=== PATIENT | male | born 1955 | race Caucasian/White ===

== ENCOUNTER 2019-11-12 12:50 | Outpatient (CLI) | payer MEDICARE, SELFPAY ==
--- NOTE | 2019-11-12 12:59 | XR_ITS ---
WS: [id number] XR knee LT 1-2V 28146 REASON FOR EXAM: PAIN IN LEFT KNEE/UNSPECIFIED OSTEOARTHRITIS FINDINGS: Degenerate changes along the medial meniscal space. Spurring off the medial condyle the fem ur and medial tibial plateau. There is spurring off the patella. The patella femoral articulations are normal. Patella tibial spaces are normal. XR/XR knee LT 1-2V 54422 IMPRESSION: Degenerate changes along the medial meniscus.
== END 2019-11-12 12:51 | disposition home or self-care (01) ==
LOC: RADWPI 12:55
PROVIDERS: Family Provider Nurse Practitioner Family; PCP Nurse Practitioner Family; Visit Provider Nurse Practitioner Family
DX: M17.12 Unilateral primary osteoarthritis, left knee
CPT/HCPCS: 73560

== ENCOUNTER 2020-01-05 07:43 | Day surgery (SDC) | payer MEDICARE, SELFPAY ==
[2020-01-01 12:11] VITALS: BMI 37.8
[2020-01-05 08:01] VITALS: BP 144/92; PULSE 61; RESP 18; TEMP 36.1; O2SAT 97
[2020-01-05] MEDS: sodium chloride 0.9% 1,000 ML 30 ML IV (08:21)
--- NOTE | 2020-01-05 08:27 | ANES.PREANE2 ---
Pre-Anesthetic Assessment Pre-Anesthetic Assessment: Height/Weight: Height 1.63 m Weight 99.79 kg Temp Pulse Resp BP Pulse Ox 97 F L 61 18 144/92 97 01/05/20 08:01 01/05/20 08:01 01/05/20 08:01 01/05/20 08:01 01/05/20 08:01 Preop Diagnosis: Fit test positive Proposed Procedure: Operation Date: 01/05/20 09:15 Proposed Procedures p Colonoscopy 04232 K92.1(Not Applicable) - Grayson Vanegas MD Was Beta Nisha taken within 24 hours: Yes Last intake: Intake Last Liquid Date 01/04/20 Last Liquid Time 20:00 Last Solid Date 01/03/20 Last Solid Time 18:00 Social: Social History: No alcohol and No tobacco Airway: Submandibular: WNL Cervical ROM: WNL MP: 1 CV/HEM: CV/HEM: HTN GI: GI: Hiatus hernia (asymptomatic) Anesthetic Plan: ASA status: 2 Anesthesia: MAC Risk of > 500 ml blood loss (7ml/kg in children): No Meds/Allergies Current Medications: Current Medications Generic Name Dose Route Start Last Admin Trade Name Freq PRN Reason Stop Dose Admin Sodium Chloride 1,000 mls @ 30 ml s/hr 01/05/20 08:00 01/05/20 08:21 Sodium Chloride 0.9% IV 01/06/20 07:59 30 mls/hr .Q24H SUSAN Administration PFSH Anesthesia PFSH: Medical History Arthritis BPH (benign prostatic hyperplasia) Hypercalcemia Hypercholesteremia Hypertension Surgical History History of back surgery Social History Smoking and tobacco status: never smoked Alcohol intake: never Data Anesthesia Cardiac Studies: No Data to Display
--- NOTE | 2020-01-05 09:28 | W.PM.OPSUD ---
Surgery/Procedure H&P Update DATE OF PROCEDURE: January 05, 2020 DATE H&P PERFORMED: 12/29/19 H&P UPDATE INFORMATION: I have reviewed H&P completed within last 30 days, I have examined patient prior to procedure and No changes to prior documentation PREOP DIAGNOSIS: Fit test positive PLANNED PROCEDURE: Operation Date: 01/05/20 09:15 Proposed Procedures p Colonoscopy 60666 K92.1(Not Applicable) - Grayson Vanegas MD
[2020-01-05 09:57] VITALS: BP 97/57; PULSE 48; RESP 18; TEMP 37.1; O2SAT 93
[2020-01-05 10:16] VITALS: BP 125/65; PULSE 52; RESP 18; O2SAT 98
== END 2020-01-05 10:21 | disposition home or self-care (01) ==
PROVIDERS: PCP Nurse Practitioner Family; Visit Provider Surgery
PROC: 0DJD8ZZ Inspection of Lower Intestinal Tract, Via Natural or Artificial Opening Endoscopic (ICD-10-PCS; CPT 45378; principal; 2020-01-05 09:15)
DX: K92.1 Melena (principal); K57.30 Diverticulosis of large intestine without perforation or abscess without bleeding; D12.4 Benign neoplasm of descending colon; C20 Malignant neoplasm of rectum; I10 Essential (primary) hypertension; M19.90 Unspecified osteoarthritis, unspecified site; N40.0 Benign prostatic hyperplasia without lower urinary tract symptoms; E78.00 Pure hypercholesterolemia, unspecified
CPT/HCPCS: 12345; 45385; 88305; J0171; J2704; J7030

== ENCOUNTER 2020-01-08 08:44 | Outpatient (CLI) | payer MEDICARE, SELFPAY ==
[2020-01-08 09:35] LABS: Blood Urea Nitrogen 14 mg/dL (8-23)
[2020-01-08] MEDS: iohexol 300 mg/mL 50 mL Btl PO (09:44)
[2020-01-08] MEDS: iohexol 300 mg/mL 100 mL Btl IV (10:23)
--- NOTE | 2020-01-08 10:30 | CT_ITS ---
WS: [id number] CT ABDOMEN PELVIS TECHNIQUE: Contrast-enhanced CT of the abdomen and pelvis with coronal and sagittal reformatted image s. CLINICAL INFORMATION: rectal mass COMPARISON: None. DLP: 1507.[address] scans at [facility] use at least one of these dose optimization techniques: automat ed exposure control; mA and/or kV adjustment per patient size (includes targeted exams where dose is matched to clinical indication); or iterative reconstruction. FINDINGS: Mild diffuse fatty infiltration of the liver. Portal vein and splenic vein are normal. Normal spleen. A few splenic granulomas. Normal GE junction. Lung bases are well aerated. Calcified granuloma right lower lobe. Normal pancreas. Adrenal glands are normal. Normal renal parenchymal enhancement. No hydronephrosis. Normal caliber ab dominal aorta. Mild aortic calcification. Scattered stool in the colon. Normal appendix. No abdominal or pelvic lymphadenopathy. Tiny fat-containing umbilical hernia. Rectal mass identified on colonoscopy is not definitely identified on this examination. Pelvic phleboliths. Normal perirecta l fat. Moderate spondylitic changes lumbar spine. Disc space narrowing worse at L3-L4 and L4-L5. CT/CT abdomen pelvis w con* [id number] IMPRESSION: 1. No abdominal or pelvic lymphadenopathy. No inguinal lymphadenopathy. 2. Normal visualized perirectal fat. 3. No evidence of metastatic disease in the abdomen or pelvis. 4. Incidental fat-containing umbilical hernia.
== END 2020-01-08 08:45 | disposition home or self-care (01) ==
PROVIDERS: PCP Nurse Practitioner Family; Visit Provider Surgery
DX: K62.89 Other specified diseases of anus and rectum (principal); K42.9 Umbilical hernia without obstruction or gangrene
CPT/HCPCS: 36415; 74177; 82565; 84520

== ENCOUNTER 2020-01-21 09:37 | Outpatient (CLI) | payer MEDICARE, SELFPAY ==
[2020-01-21 12:50] LABS: Alanine Aminotransferase 17 U/L (0-41); Albumin Level 4.2 g/dL (3.5-5.2); Alkaline Phosphatase 61 IU/L (40-130); Anion Gap 13.5 (5-19); Aspartate Amino Transferase 16 U/L (0-40); Blood Urea Nitrogen 13 mg/dL (8-23); Calcium 9.1 mg/dL (8.5-10.5); Carbon Dioxide 25 mmol/L (22-29); Chloride 103 mmol/L (98-107); Globulin 2.7 g/dL (1.3-4.6); Glomerular Filtration Rate 84.7 mL/min (90-130); Glucose 127 mg/dL (65-115); Osmolality Calculated 282 mOsm/kg (285-295); Potassium 4.5 mmol/L (3.5-5.1); Sodium 137 mmol/L (136-145); Total Bilirubin 0.8 mg/dL (0.15-1.2); Total Protein 6.9 g/dL (6.6-8.7)
[2020-01-21 13:22] LABS: Basophils % 0.5 %; Eosinophils # 0.2 10^3/uL (0.0-0.8); Eosinophils % 2.9 %; Hematocrit 43.6 % (42.0-52.0); Hemoglobin 13.9 g/dL (11.7-16.6); Lymphocytes # 1.9 10^3/uL (0.8-4.8); Lymphocytes % 25.1 %; Mean Corpuscular HGB Conc 31.9 g/dL (30.0-36.0); Mean Corpuscular Hemoglobin 30.8 pg (28.0-34.0); Mean Corpuscular Volume 96.7 fL (80-94); Mean Platelet Volume 11.3 fL (7.4-10.4); Monocytes # 0.6 10^3/uL (0.2-0.9); Monocytes % 8.2 %; Neutrophils # 4.84 10^3/uL (1.8-7.7); Nucleated Red Blood Cells % 0 %; Platelet Count 199 10^3/cmm (130-400); Red Blood Count 4.51 10^6/uL (4.1-5.3); Red Cell Distribution Width 12.9 % (12.1-15.1); White Blood Count 7.7 10^3/uL (4.0-10.0)
--- NOTE | 2020-01-21 17:21 | ONC CON_ITS ---
Dr. Cline New Patient Note Patient: Ian Coleman Unit #: [id number]: 1955 Dicatated By: Maria Elena Cline M.D.Date of Visit: Jan 21, 2020 Onc MED New Patient/Consult Referring Physician: Dr. KADI VANEGAS M.D. History of Present Illness: Mr. Ian Coleman, is a 64-year-old gentleman with history of fresh blood per rectum over 2 years, initially thought could be due to hemorrhoids but eventually his convinced him to go for colonoscopy evaluation which he never had done before. Patient was seen by Dr. Vanegas for guaiac positive stool, he underwent colonoscopy on January 05, 2020 which showed about 5 cm from anal verge, there was a 3 cm mass noted sessile type, was removed partially with a snare and final pathology report came back well-differentiated adenocarcinoma and MSI/MMR shows normal expression, there was a 5 mm sessile polyp removed from descending colon which showed tubular adenoma Rest of exam was unremarkable. Patient had CT scan of abdomen pelvis done on January 08, 2020 which showed no abdominal or pelvic lymphadenopathy, no inguinal lymphadenopathy and no evidence of metastatic disease in the abdomen or pelvis. Patient denies any history of jaundice, denies any history of hemoptysis or hematemesis, Patient has history of chronic lower back pain, in the past evaluated by orthopedics, because of risk involved with surgery, supportive care was recommended Complaining of generalized weakness and fatigue, no weight loss, no shortness of breath or palpitation, no chest pain. Past Medical History: Mr. Coleman's medical history consists of arthritis, bph, hypercalcemia, hypercholesterolemia, and hypertension. Past Surgical History: Mr. Coleman's surgical/procedural history consists of back surgery and colonoscopy in 2020. Medications: Aspirin 1 Tablet (of 81 mg) Tablet, chewable Oral daily, Atenolol 1 Tablet (of 25 mg) Oral b.i.d., Atorvastatin Calcium 1 Tablet (of 20 mg) Oral daily, Cinnamon 1 Capsule (of 1000 mg) Oral daily, Finasteride 1 Tablet (of 5 mg) Oral daily, Losartan Potassium 1 Tablet (of 100 mg) Oral daily, Tamsulosin HCl 1 Capsule (of 0.4 mg) Oral daily, Turmeric 1 Capsule (of 500 mg) Oral daily Allergies: No Known Allergies. Social History: Mr. Coleman is and he is an unknown. Mr. Coleman has never smoked. He has no history of drinking. Family History: Mr. Coleman's mother at age 79. Mr. Coleman's father at age 51: blood clot. Review Of Symptoms: Constitutional - Appetite is good and weight is stable. No fever, night sweats, or hot flashes. Energy level is fair, ENMT - No sinus congestion/drainage. No mouth sores. No sore throat or difficulty swallowing, Hematologic/Lymphatic - No abnormal bruising or bleeding, Respiratory - Positive for shortness of breath. No cough. No pleuritic pain or hemoptysis, Cardiovascular - No angina pain. No palpitations, Gastrointestinal - No nausea or vomiting. Positive for heartburn and acid reflux. Positive for diarrhea, no constipation. Positive for blood in the stool/black stools, Genitourinary (M) - No dysuria or hematuria. Positive for urinary frequency and nocturia. No urgency or incontinence, Musculoskeletal - Positive for joint pain, Neurologic - No headache. Positive for dizziness. No numbness or tingling. No other focal neurologic symptoms, Psychiatric - No anxiety or depression. Positive for insomnia. Vital Signs: Performed on Jan 21, 2020 11:03: 8, 38.35 (HIGH), 2.05 sq.m, 64.00 in, 99 %, 47 /min (LOW), 24 /min, 161/88 mm(hg) (HIGH), 97.2 F (LOW), and 223.4 lbs (HIGH). Performance Status: 0 - Fully active, able to carry on all predisease activities without restrictions. (ECOG) Physical Examination: ENMT - No mouth sores, no thrush, no jaundice, Respiratory - Lungs are clear, Cardiovascular - Regular rate and rhythm of heart, Gastrointestinal - Soft , bowel sounds present, Extremities - No visible edema. Lab/Imaging: Most recent lab results are not available for this patient. Impression: Well-differentiated adenocarcinoma involving rectum per colonoscopy done on January 05, 2020 which showed 5 cm from anal verge, there was a 3 cm mass which was removed partially with snare Polyp removed from descending colon, pathology confirmed tubular adenoma History of melena hematochezia over couple of years, history of hemorrhoids. History of chronic back pain Plan: Discussed with patient regarding his disease status and treatment options, clinically it appears patient may have early stage rectal cancer, case was discussed with Dr. Guilherme hsu and he was considering referring him to colorectal surgeon in [place], agree with that, patient may benefit from transanal sonogram or MRI scan of pelvis and if superficial lesion, may be a candidate for transanal resection. On the other hand if tumor is locally advanced, will consider combined chemoradiation, or upfront surgery followed by adjuvant therapy, patient is being referred to colorectal surgery in [place] and he will return to clinic 2 weeks after evaluation. In the meantime we will check his baseline CBC CMP, patient may have iron deficiency anemia due to chronic GI blood loss, if confirmed will consider iron supplements. Signed By: Maria Elena Cline M.D. <<Signature on File>>
== END 2020-01-21 09:38 | disposition home or self-care (01) ==
PROVIDERS: PCP Nurse Practitioner Family; Visit Provider Internal Medicine Hematology & Oncology
DX: C20 Malignant neoplasm of rectum (principal); G89.29 Other chronic pain; K92.2 Gastrointestinal hemorrhage, unspecified; Z86.010 Personal history of colon polyps
CPT/HCPCS: 80053; 85025; 99203

== ENCOUNTER 2020-04-13 13:39 | Outpatient (CLI) | payer MEDICARE, SELFPAY ==
[2020-04-13 14:18] LABS: Basophils # 0.1 10^3/uL (0.0-0.1); Basophils % 0.7 %; Eosinophils # 0.3 10^3/uL (0.0-0.8); Eosinophils % 3.4 %; Hematocrit 40.9 % (42.0-52.0); Hemoglobin 13.6 g/dL (11.7-16.6); Lymphocytes # 2.4 10^3/uL (0.8-4.8); Lymphocytes % 31.9 %; Mean Corpuscular HGB Conc 33.3 g/dL (30.0-36.0); Mean Corpuscular Hemoglobin 30.2 pg (28.0-34.0); Mean Corpuscular Volume 90.9 fL (80-94); Mean Platelet Volume 10.6 fL (7.4-10.4); Monocytes # 0.8 10^3/uL (0.2-0.9); Monocytes % 10.1 %; Neutrophils # 4.06 10^3/uL (1.8-7.7); Neutrophils % 53.6 %; Nucleated Red Blood Cells % 0 %; Platelet Count 198 10^3/cmm (130-400); Red Cell Distribution Width 12.7 % (12.1-15.1); White Blood Count 7.6 10^3/uL (4.0-10.0)
[2020-04-13 14:40] LABS: Alanine Aminotransferase 17 U/L (0-41); Albumin Level 3.9 g/dL (3.5-5.2); Alkaline Phosphatase 73 IU/L (40-130); Anion Gap 14.1 (5-19); Aspartate Amino Transferase 13 U/L (0-40); Blood Urea Nitrogen 17 mg/dL (8-23); Calcium 9.2 mg/dL (8.5-10.5); Carbon Dioxide 25 mmol/L (22-29); Chloride 103 mmol/L (98-107); Globulin 2.3 g/dL (1.3-4.6); Glomerular Filtration Rate 96.7 mL/min (90-130); Glucose 212 mg/dL (65-115); Osmolality Calculated 294 mOsm/kg (285-295); Potassium 4.1 mmol/L (3.5-5.1); Sodium 138 mmol/L (136-145); Total Bilirubin 0.3 mg/dL (0.15-1.2); Total Protein 6.2 g/dL (6.6-8.7)
--- NOTE | 2020-04-13 16:50 | ONC FU_ITS ---
Dr. Cline follow up note Patient: Ian Coleman Unit #: [id number]: 1955 Dicatated By: Maria Elena Cline M.D.Date of Visit:Apr 13, 2020 Onc Med Follow-up/Prog Note History of Present Illness: Mr. Ian Coleman, is a 64-year-old gentleman with history of fresh blood per rectum over 2 years, initially thought could be due to hemorrhoids but eventually his convinced him to go for colonoscopy evaluation which he never had done before. Patient was seen by Dr. Vanegas for guaiac positive stool, he underwent colonoscopy on January 05, 2020 which showed about 5 cm from anal verge, there was a 3 cm mass noted sessile type, was removed partially with a snare and final pathology report came back well-differentiated adenocarcinoma and MSI/MMR shows normal expression, there was a 5 mm sessile polyp removed from descending colon which showed tubular adenoma Rest of exam was unremarkable. Patient had CT scan of abdomen pelvis done on January 08, 2020 which showed no abdominal or pelvic lymphadenopathy, no inguinal lymphadenopathy and no evidence of metastatic disease in the abdomen or pelvis. Patient denies any history of jaundice, denies any history of hemoptysis or hematemesis, Patient has history of chronic lower back pain, in the past evaluated by orthopedics, because of risk involved with surgery, supportive care was recommended Complaining of generalized weakness and fatigue, no weight loss, no shortness of breath or palpitation, no chest pain. Dr. Vanegas referred the patient to colorectal surgeon in [place], as per patient on March 16, 2020 he underwent transanal colorectal surgery and he was told he has stage I disease, as per patient his surgeon Dr. Hugo gutierrez told him that he will need chemoradiation. Came for follow-up, denies any specific complaint, no fever chills, no nausea or vomiting, no diarrhea or constipation, no melena or hematochezia, no constipation. Medications: Aspirin 1 Tablet (of 81 mg) Tablet, chewable Oral daily, Atenolol 1 Tablet (of 25 mg) Oral b.i.d., Atorvastatin Calcium 1 Tablet (of 20 mg) Oral daily, Cinnamon 1 Capsule (of 1000 mg) Oral daily, Finasteride 1 Tablet (of 5 mg) Oral daily, Losartan Potassium 1 Tablet (of 100 mg) Oral daily, Tamsulosin HCl 1 Capsule (of 0.4 mg) Oral daily, Turmeric 1 Capsule (of 500 mg) Oral daily Allergies: No Known Allergies. Review of Systems: Review of Systems is not available for this patient. Vital Signs: Performed on Apr 13, 2020 15:53 Height - 64.00 in Weight - 232.8 lbs (HIGH) BSA - 2.09 sq.m BMI - 39.96 (HIGH) Temperature - 98.2 F (LOW) Pulse - 54 /min (LOW) Respiration - 24 /min BP - 140/102 mm(hg) O2 Sat - 94 % (LOW) Pain - 0 Performance Status: 0 - Fully active, able to carry on all predisease activities without restrictions. (ECOG) Physical Examination: ENMT - No mouth sores, no thrush, no jaundice, Respiratory - Lungs are clear to auscultation, Cardiovascular - Regular rate and rhythm of heart, Abdomen - Soft, bowel sounds present, Extremities - No visible edema. Lab/Imaging: Test performed on Jan 21, 2020 11:58 Sodium 137 mmol/L Potassium 4.5 mmol/L Chloride 103 mmol/L CO2 25 mmol/L Anion Gap 13.5 BUN 13 mg/dL Creatinine 0.9 mg/dL Cr Clearance (Est) 117.2900 mL/min eGFR 84.7 mL/min Glucose 127 mg/dL Calcium 9.1 mg/dL Osmolality - Calculated 282 mOsm/kg Protein, Total 6.9 g/dL Albumin 4.2 g/dL Globulin 2.7 g/dL Bilirubin, Total 0.8 mg/dL ALT (SGPT) 17 U/L AST (SGOT) 16 U/L Alkaline Phosphatase 61 IU/L WBC 7.7 10 3/uL RBC 4.51 10 6/uL HGB 13.9 g/dL HCT 43.6 % MCV 96.7 fL MCH 30.8 pg MCHC 31.9 g/dL RDW 12.9 % Platelet Count 199 10 3/cmm MPV 11.3 fL Neutrophils 4.84 10 3/uL Lymphocytes 1.9 10 3/uL Monocytes 0.6 10 3/uL Eosinophils 0.2 10 3/uL Basophils 0.0 10 3/uL Neutrophil % 63.0 % Lymphocyte % 25.1 % Monocyte % 8.2 % Eosinophil % 2.9 % Basophils % 0.5 % NRBC % 0 % Impression: Well-differentiated adenocarcinoma involving rectum per colonoscopy done on January 05, 2020 which showed 5 cm from anal verge, there was a 3 cm mass which was removed partially with snare Subsequently patient underwent transanal resection on March 16, 2020, Polyp removed from descending colon, pathology confirmed tubular adenoma History of melena hematochezia over couple of years, history of hemorrhoids. History of chronic back pain Plan: Discussed with patient regarding his labs white blood count 7.6 hemoglobin 13.6 hematocrit 40.9 platelets 198,000 CMP within normal limit except glucose 212 Clinically, patient is doing well, with no new signs symptoms, recently underwent transanal resection of colorectal mass, as per patient he was told he has stage I disease and his case was discussed in tumor board in [place] and his surgeon recommended combined chemoradiation. At this moment, we do not have his medical record available from [place], we will request record release regarding his transanal resection surgery and final pathology report as well as tumor board recommendations. Patient will return to clinic week after Thanksgiving for further discussion Addendum, case was discussed with Dr. Hugo Gutierrez and he said patient has stage I rectal cancer with lymphovascular involvement that would make him high risk stage I and his case was discussed in tumor board and recommendations were combined chemoradiation followed by evaluation and if no evidence of disease, adjuvant chemotherapy with FOLFOX. And also discussed about NCCN guideline which include transabdominal resection in high risk stage I, with Nx status disease if lymph node status is negative then observation can be considered, we will discussed with patient regarding both options and the patient agreed for surgery then Dr. Gutierrez will evaluate him on the other hand the patient decided about combined chemoradiation then will consider referral to radiation and concurrent chemotherapy with oral Xeloda followed by evaluation if no disease, adjuvant chemotherapy with FOLFOX. Signed By: Maria Elena Cline M.D. <<Signature on File>>
== END 2020-04-13 13:40 | disposition home or self-care (01) ==
LOC: ONCMED 13:42
PROVIDERS: PCP Nurse Practitioner Family; Visit Provider Internal Medicine Hematology & Oncology
DX: C20 Malignant neoplasm of rectum (principal); D12.4 Benign neoplasm of descending colon; G89.29 Other chronic pain; M54.9 Dorsalgia, unspecified; Z90.49 Acquired absence of other specified parts of digestive tract
CPT/HCPCS: 36415; 80053; 85025; 99214

== ENCOUNTER 2020-05-05 09:45 | Outpatient (CLI) | payer MEDICARE, SELFPAY ==
--- NOTE | 2020-05-06 00:44 | ONC FU_ITS ---
Dr. Cline follow up note Patient: Ian Coleman Unit #: [id number]: 1955 Dicatated By: Maria Elena Cline M.D.Date of Visit:May 05, 2020 Onc Med Follow-up/Prog Note History of Present Illness: Mr. Ian Coleman, is a 64-year-old gentleman with history of fresh blood per rectum over 2 years, initially thought could be due to hemorrhoids but eventually his convinced him to go for colonoscopy evaluation which he never had done before. Patient was seen by Dr. Vanegas for guaiac positive stool, he underwent colonoscopy on January 05, 2020 which showed about 5 cm from anal verge, there was a 3 cm mass noted sessile type, was removed partially with a snare and final pathology report came back well-differentiated adenocarcinoma and MSI/MMR shows normal expression, there was a 5 mm sessile polyp removed from descending colon which showed tubular adenoma Rest of exam was unremarkable. Patient had CT scan of abdomen pelvis done on January 08, 2020 which showed no abdominal or pelvic lymphadenopathy, no inguinal lymphadenopathy and no evidence of metastatic disease in the abdomen or pelvis. Patient denies any history of jaundice, denies any history of hemoptysis or hematemesis, Patient has history of chronic lower back pain, in the past evaluated by orthopedics, because of risk involved with surgery, supportive care was recommended Complaining of generalized weakness and fatigue, no weight loss, no shortness of breath or palpitation, no chest pain. Dr. Vanegas referred the patient to colorectal surgeon in [place], as per patient on March 16, 2020 he underwent transanal colorectal surgery and he was told he has stage I disease, as per patient his surgeon Dr. Hugo john told him that he will need chemoradiation. Came for follow-up, denies any specific complaints except off and on blood per rectum and patient is here to discuss about his treatment options. Denies any abdominal pain denies any nausea or vomiting or diarrhea, denies any jaundice. Medications: Aspirin 1 Tablet (of 81 mg) Tablet, chewable Oral daily, Atenolol 1 Tablet (of 25 mg) Oral b.i.d., Atorvastatin Calcium 1 Tablet (of 20 mg) Oral daily, Cinnamon 1 Capsule (of 1000 mg) Oral daily, Finasteride 1 Tablet (of 5 mg) Oral daily, Losartan Potassium 1 Tablet (of 100 mg) Oral daily, Tamsulosin HCl 1 Capsule (of 0.4 mg) Oral daily, Turmeric 1 Capsule (of 500 mg) Oral daily Allergies: No Known Allergies. Review of Systems: Constitutional - Appetite is good and weight is stable. No fever, night sweats, or hot flashes. Energy level is fair, ENMT - No sinus congestion/drainage. No mouth sores. No sore throat or difficulty swallowing, Hematologic/Lymphatic - No abnormal bruising or bleeding, Respiratory - Positive for shortness of breath. No cough. No pleuritic pain or hemoptysis, Cardiovascular - No angina pain. No palpitations, Gastrointestinal - No nausea or vomiting. Positive for heartburn and acid reflux. No for diarrhea, no constipation. Positive for blood in the stool/black stools, Genitourinary (M) - No dysuria or hematuria. Positive for urinary frequency and nocturia. No urgency or incontinence, Musculoskeletal - Positive for joint pain, Neurologic - No headache. No for dizziness. No numbness or tingling. No other focal neurologic symptoms, Psychiatric - No anxiety or depression. No for insomnia. Vital Signs: Performed on May 05, 2020 11:11 Height - 64.00 in Weight - 235.8 lbs (HIGH) BSA - 2.10 sq.m BMI - 40.48 (HIGH) Temperature - 98.0 F (LOW) Pulse - 52 /min (LOW) Respiration - 20 /min BP - 208/101 mm(hg) (HIGH) O2 Sat - 94 % (LOW) Pain - 5 Performance Status: 0 - Fully active, able to carry on all predisease activities without restrictions. (ECOG) Physical Examination: ENMT - No mouth sores, no thrush, no jaundice, Respiratory - Lungs are clear to auscultation, Cardiovascular - Regular rate and rhythm of heart, Abdomen - Soft, bowel sounds present, Extremities - No visible edema. Lab/Imaging: Test performed on Apr 13, 2020 14:01 Sodium 138 mmol/L Potassium 4.1 mmol/L Chloride 103 mmol/L CO2 25 mmol/L Anion Gap 14.1 BUN 17 mg/dL Creatinine 0.8 mg/dL Cr Clearance (Est) 135.66 mL/min eGFR 96.7 mL/min Glucose 212 mg/dL Osmolality - Calculated 294 mOsm/kg Calcium 9.2 mg/dL Protein, Total 6.2 g/dL Albumin 3.9 g/dL Globulin 2.3 g/dL Bilirubin, Total 0.3 mg/dL ALT (SGPT) 17 U/L AST (SGOT) 13 U/L Alkaline Phosphatase 73 IU/L WBC 7.6 10 3/uL RBC 4.50 10 6/uL HGB 13.6 g/dL HCT 40.9 % MCV 90.9 fL MCH 30.2 pg MCHC 33.3 g/dL RDW 12.7 % Platelet Count 198 10 3/cmm MPV 10.6 fL Neutrophils 4.06 10 3/uL Lymphocytes 2.4 10 3/uL Monocytes 0.8 10 3/uL Eosinophils 0.3 10 3/uL Basophils 0.1 10 3/uL Neutrophil % 53.6 % Lymphocyte % 31.9 % Monocyte % 10.1 % Eosinophil % 3.4 % Basophils % 0.7 % NRBC % 0 % Impression: Well-differentiated adenocarcinoma involving rectum per colonoscopy done on January 05, 2020 which showed 5 cm from anal verge, there was a 3 cm mass which was removed partially with snare Subsequently patient underwent transanal resection on March 16, 2020, Polyp removed from descending colon, pathology confirmed tubular adenoma History of melena hematochezia over couple of years, history of hemorrhoids. History of chronic back pain Plan: Discussed with patient regarding his treatment options which include being high risk stage I with lymphovascular involvement and unknown lymph node status as patient underwent transanal resection, neoadjuvant chemotherapy with oral Xeloda concurrent with radiation therapy followed by evaluation if no evidence of disease then adjuvant FOLFOX other option would be transabdominal resection and if it confirm stage I disease with no lymph node involvement then observation or clinical trial. Patient opted for upfront surgery, and now scheduled to surgery in [place] on May 17, 2020. Patient return to clinic 2 weeks after his surgery for further discussion. As far as off and on mild bleeding per rectum is concerned, patient was advised to avoid NSAID or use stool softener and if there is a worsening of rectal bleeding, he need to call us or go to hospital for evaluation otherwise as mentioned above patient is scheduled see surgery on May 17, 2020 in [place] Signed By: Maria Elena Cline M.D. <<Signature on File>>
== END 2020-05-05 09:46 | disposition home or self-care (01) ==
LOC: ONCMED 09:47
PROVIDERS: PCP Nurse Practitioner Family; Visit Provider Internal Medicine Hematology & Oncology
DX: C20 Malignant neoplasm of rectum (principal); G89.29 Other chronic pain; M54.9 Dorsalgia, unspecified; Z86.010 Personal history of colon polyps; Z79.82 Long term (current) use of aspirin
CPT/HCPCS: 99214

== ENCOUNTER 2021-07-28 17:48 | Emergency (ER) | payer MEDICARE, SELFPAY ==
[2021-07-28 17:56] VITALS: BP 133/83; PULSE 79; RESP 18; TEMP 36.9; O2SAT 95; BMI 43.6
--- NOTE | 2021-07-28 18:05 | PC.NURSE ---
DR. WILLIS REVIEWED EKG TAKEN IN TRIAGE AT 1803
--- NOTE | 2021-07-28 18:35 | XRR_ITS ---
PROCEDURE INFORMATION: Exam: XR Chest Exam date and time: 07/28/2021 6:35 PM Age: 66 years old Clinical indication: Angina; Additional info: Chest pain TECHNIQUE: Imaging protocol: XR of the chest. Views: 1 view. COMPARISON: CT abdomen pelvis w con* [id number] 01/08/2020 10:16 AM FINDINGS: Lungs: Unremarkable. No consolidation. Pleural spaces: Unremarkable. No pleural effusion. No pneumothorax. Heart/Mediastinum: Unremarkable. No cardiomegaly. Bones/joints: Unremarkable. XR/XR chest 1V portable [id number] IMPRESSION: No acute findings.
--- NOTE | 2021-07-28 18:35 | ECG_ITS ---
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 Measurements Intervals [place] Rate: 92 P: 36 NE: 175 QRS: -49 QRSD: 96 T: 45 QT: 348 QTc: 432 Interpretive Statements SINUS RHYTHM WITH OCCASIONAL SUPRAVENTRICULAR PREMATURE COMPLEXES LEFT AXIS DEVIATION [QRS AXIS < -30] INTERPRETATION BASED ON A DEFAULT AGE OF 40 YEARS No previous ECG available for comparison Electronically Signed On 07-29-2021 8:30:58 JOB TRAINER by Sharmin Shin M.D. [id number]
--- NOTE | 2021-07-28 20:35 | ECG_ITS ---
[facility] Test Date: 2021-07-28 Pat Name: Ian Coleman Department: Room: Gender: Male Entry Level Management: : 1955 Requested By: Ant Argueta Order Number: [id number] Maggie MD: Sharmin Shin M.D. Measurements Intervals [place] Rate: 76 P: 39 AL: 184 QRS: -51 QRSD: 99 T: 35 QT: 362 QTc: 409 Interpretive Statements SINUS RHYTHM WITH OCCASIONAL VENTRICULAR PREMATURE COMPLEXES WITH OCCASIONAL SUPRAVENTRICULAR PREMATURE COMPLEXES LEFT AXIS DEVIATION [QRS AXIS < -30] Compared to ECG 07/28/2021 18:01:30 Ventricular premature complex(es) now present Electronically Signed On 07-29-2021 8:41:51 NONPROFIT FUNDRAISER by Sharmin Shin M.D. [id number]
--- NOTE | 2021-07-28 21:24 | ED_ITS ---
Documented by User: Ant Argueta MD 08/07/21 17:21 HPI - Chest Pain General: Chief Complaint: Chest Pain Stated Complaint: Chest Pains and SOB Time Seen by Provider: 07/28/21 21:15 History of Present Illness: Mr Coleman is a 66-year-old gentleman with history of hypertension, hyperlipidemia, obesity who presents emergency department due to chest discomfort and associated symptoms. He reports onset of symptoms was subacute approximately 5 days ago without specific known provoking factor. He has had chest discomfort in the middle of his chest, back pain that is higher than his chronic back pain, abdominal discomfort with nausea and vomiting. At times there has been mild shortness of breath and patient has looked ill per family. Patient denies specific provoking or exacerbating factors. He has had some constipation and subsequent diarrhea and generalized abdominal discomfort. No other specific changes in health reported. He does have a positive family history for early cardiac disease. Onset (ago): day(s) Timing of current episode: constant Onset: during rest Associated symptoms: Reports nausea and vomiting Review of Systems General: Reports: 10 or more systems reviewed and unremarkable except in HPI and below GI: Reports: nausea and vomiting PFSH ED PFSH: Medical History Arthritis BPH (benign prostatic hyperplasia) Hypercalcemia Hypercholesteremia Hypertension Surgical History History of back surgery History of colonoscopy with polypectomy (01/05/20) rectl mass, diverticulosis, descending colon polyp Social History Smoking and tobacco status: never smoked Alcohol intake: never Physical Exam Const: COMMON NORMALS: alert GENERAL APPEARANCE: cooperative, well developed and ill appearing (mildly) NUTRITIONAL APPEARANCE: obese HENMT: COMMON NORMALS: normocephalic and atraumatic HEAD & SCALP: normocephalic and atraumatic THROAT: posterior oropharynx normal Eye: COMMON NORMALS: conjunctivae normal CONJUNCTIVA: Yes conjunctivae normal SCLERA: sclerae normal Neck/C-Spine: COMMON NORMALS: supple GENERAL: Yes trachea midline Resp: COMMON NORMALS: normal respiratory effort and clear to auscultation bilaterally EFFORT & INSPECTION: Yes able to speak in complete sentences AUSCULTATION: clear to auscultation bilaterally Cardio: COMMON NORMALS: regular rate and regular rhythm RATE: regular rate RHYTHM: regular rhythm GI: COMMON NORMALS: Soft to palpation PALPATION: Yes Soft to palpation, Yes Tenderness to palpation present (GI), No Guarding due to palpation present (GI) and No Rigid due to palpation PERCUSSION: normal to percussion Extremity: GENERAL: Yes normal exam except as noted and No edema Neuro: COMMON NORMALS: moves all extremities SENSORIUM/ORIENTATION: Yes alert and No Orientation impaired Psych: COMMON NORMALS: mental status grossly normal and Normal thought process present THOUGHT PROCESS: Normal thought process present Course ED course: - Patient was seen and evaluated by me at bedside - Patient placed on cardiac monitors, IV access obtained -Aspirin, fluids given - Labs notable for leukocytosis. Metabolic panel with evidence of dehydration. - Imaging notable for no acute finding on chest x-ray. - Patient care handed off to overnight ED physician Dr. Reynolds pending completion of ED evaluation including CT scans and repeat troponin and reassessment Vital Signs: Vital signs: Vital Signs Temperature 98.5 F 07/28/21 17:56 Pulse Rate 83 07/29/21 01:07 Respiratory Rate 19 H 07/29/21 01:07 Blood Pressure 154/91 07/29/21 01:07 Pulse Oximetry 95 07/29/21 01:07 MDM - Chest Pain Medical Records I reviewed the patient's medical records. Lab Data I reviewed the patient's lab results. : 07/28/21 21:29 07/28/21 21:29 Radiology Impressions Chest X-Ray 07/28/21 18:35 IMPRESSION: No acute findings. Chest/Abdomen/Pelvis CT 07/28/21 22:56 IMPRESSION: There are no acute chest findings. IMPRESSION: 1. There is bowel wall thickening of the proximal duodenum with surrounding hazy in strandy opacities within the retroperitoneal fat and fascia and along Gerota's fascia on the right, findings compatible with duodenitis. Mild pancreatitis cannot be entirely excluded as well. 2. Mild fatty infiltration of liver 3. Diverticulosis of the descending and sigmoid colon 4. Normal appendix Laboratory Results WBC 14.4 10^3/uL (4.0-10.0) H 07/28/21 21:29 RBC 5.05 10^6/uL (4.1-5.3) 07/28/21 21: Hgb 15.5 g/dL (11.7-16.6) 07/28/21 21: Hct 46.3 % (42.0-52.0) 07/28/21 21: MCV 91.7 fl (80-94) 07/28/21 21: MCH 30.7 pg (28.0-34.0) 07/28/21 21: MCHC 33.5 g/dL (30.0-36.0) 07/28/21: RDW 12.6 % (12.1-15.1) 07/28/21: Plt Count 235 10^3/cmm (130-400) 07/28/21: MPV 10.5 fL (7.4-10.4) H 07/28/21 21: Neut % (Auto) 82.0 % 07/28/21 21: Lymph % (Auto) 10.8 % 07/28/21 21: [place] % (Auto) 6.6 % 07/28/21 21: Eos % (Auto) 0.2 % 07/28/21 21: Baso % (Auto) 0.3 % 07/28/21: Neut # (Auto) 11.78 10^3/uL (1.8-7.7) H 07/28/21: Lymph # (Auto) 1.6 10^3/uL (0.8-4.8) 07/28/21: [place] # (Auto) 1.0 10^3/uL (0.2-0.9) H 07/28/21 21: Eos # (Auto) 0.0 10^3/uL (0.0-0.8) 07/28/21: Baso # (Auto) 0.1 10^3/uL (0.0-0.1) 07/28/21: Nucleated RBC % (auto) 0 % 07/28/21 21: Nucleated RBCs # 0.0 /100WBC 07/28/21 21: Sodium 134 mmol/L (136-145) L 07/28/21 21:29 Potassium 4.4 mmol/L (3.5-5.1) 07/28/21 21: Chloride 99 mmol/L (98-107) 07/28/21 21: Carbon Dioxide 18 mmol/L (22-29) L 07/28/21 21: Anion Gap 21.4 (5-19) H 07/28/21 21:29 BUN 19 mg/dL (8-23) 07/28/21 21: Creatinine 1.1 mg/dL (0.7-1.2) 07/28/21 21:29 GFR Calculation 66.8 mL/min (90-130) L 07/28/21 21: Glucose 179 mg/dL (65-115) H 07/28/21 21: Calculated Osmolality 285 mOsm/kg (285-295) 07/28/21: Calcium 10.1 mg/dL (8.5-10.5) 07/28/21: Total Bilirubin 0.9 mg/dL (0.15-1.2) 07/28/21 21: AST 20 U/L (0-40) 07/28/21 21: ALT 22 U/L (0-41) 07/28/21 21: Alkaline Phosphatase 80 IU/L (40-130) 07/28/21 21: Troponin T Baseline 16 ng/L (0-15) H 07/28/21 21: Troponin T 120 Minute 15.22 ng/L (0-15) H 07/28/21 23:36 Delta Troponin T -0.78 ABS# (0-10) L 07/28/21 23:36 NT-Pro-B Natriuret Pep 40 pg/mL (0-125) 07/28/21 21: Total Protein 7.3 g/dL (6.6-8.7) 07/28/21 21: Albumin 4.7 g/dL (3.5-5.2) 07/28/21 21: Globulin 2.6 g/dL (1.3-4.6) 07/28/21 21: Lipase 17 U/L (13-60) 07/28/21 21:29 Coronavirus 229E (PCR) Not detected (NOT DETECT) 07/28/21 21:40 SARS-CoV-2 (PCR) Not detected (NOT DETECT) 07/28/21 21:40 EKG Data EKG 1: I personally reviewed and interpreted this EKG as follows: EKG interpretation date: 07/28/21 EKG interpretation time: 18:03 Interpretation: Twelve-lead EKG shows a regular rhythm at a rate of 92. GA interval 175, QRS duration 96, QTc 398. Left axis deviation. Interpretation: Sinus rhythm. Nonspecific ST segment abnormalities. Discharge Plan Discharge Patient Disposition: Home Clinical Impression: Acute duodenitis Condition: Stable Prescriptions: New hydrocodone-acetaminophen 5-325 mg tablet 1 tab PO Q8H PRN (Reason: pain) Qty: 10 0RF Zofran 4 mg tablet 4 mg PO Q6H PRN (Reason: nausea and vomiting) Qty: 10 0RF Augmentin 875-125 mg tablet 1 tab PO BID Qty: 20 0RF No Action atenolol 25 mg tablet 25 mg PO BID 0RF losartan 100 mg tablet 100 mg PO DAILY 0RF atorvastatin 20 mg tablet 20 mg PO DAILY 0RF finasteride 5 mg tablet 5 mg PO DAILY 0RF tamsulosin 0.4 mg capsule 0.4 mg PO DAILY 0RF aspirin 81 mg tablet,chewable 81 mg PO DAILY 0RF cinnamon bark 500 mg capsule 1,000 mg PO DAILY 0RF turmeric root extract 500 mg capsule 1,000 mg PO BID 0RF diclofenac sodium 1 % gel 2 gm TOPICAL QID 0RF Rx Instructions: apply to single elbow, wrist or hand; for hand includes palm/fingers/back of hand Discharge Orders: Discharge ED (Routine); Ordered 07/29/21 Ordered By: Wyatt Reynolds Referrals: Catherine Law FNP [Primary Care Provider] - 1-3 days Patient Instructions: Duodenitis (ED) Activity Restrictions/Additional Instructions: Return for worsening pain despite treatment, vomiting liquids or medications, fever greater than 100 despite 2-3 doses of antibiotics, blood in the stool, any other concerning symptoms. Coding Level of Care Code ED Blast Hole Driller for Chg Fwd Documented by User: Wyatt Reynolds DO 07/29/21 03:48 HPI - Chest Pain General: Chief Complaint: Chest Pain Stated Complaint: Chest Pains and SOB Time Seen by Provider: 07/28/21 21:15 [facility] ED PFSH: Medical History Arthritis BPH (benign prostatic hyperplasia) Hypercalcemia Hypercholesteremia Hypertension Surgical History History of back surgery History of colonoscopy with polypectomy (01/05/20) rectl mass, diverticulosis, descending colon polyp Social History Smoking and tobacco status: never smoked Alcohol intake: never Course Vital Signs: Vital signs: Vital Signs Temperature 98.5 F 07/28/21 17:56 Pulse Rate 83 07/29/21 01:07 Respiratory Rate 19 H 07/29/21 01:07 Blood Pressure 154/91 07/29/21 01:07 Pulse Oximetry 95 07/29/21 01:07 MDM - Chest Pain Medical Decision Making 66-year-old male checked out to me by the previous physician at shift change. This gentleman complained of vague symptoms including chest and upper belly pain. He had been vomiting some. His white blood cell count 14.4. Bicarbonate of 18, and a minimally elevated anion gap. He was given IV fluid here. CT of the chest abdomen pelvis shows duodenitis consistent with his symptoms. I gave the patient the choice of inpatient versus outpatient treatment. He elected a trial of outpatient treatment. He knows the risks. He will be treated with Augmentin, antiemetic, and some pain medication with close outpatient follow-up. Warning signs for return were given. Lab Data : 07/28/21 21:29 07/28/21 21:29 Radiology Impressions Chest X-Ray 07/28/21 18:35 IMPRESSION: No acute findings. Chest/Abdomen/Pelvis CT 07/28/21 22:56 IMPRESSION: There are no acute chest findings. IMPRESSION: 1. There is bowel wall thickening of the proximal duodenum with surrounding hazy in strandy opacities within the retroperitoneal fat and fascia and along Gerota's fascia on the right, findings compatible with duodenitis. Mild pancreatitis cannot be entirely excluded as well. 2. Mild fatty infiltration of liver 3. Diverticulosis of the descending and sigmoid colon 4. Normal appendix Laboratory Results WBC 14.4 10^3/uL (4.0-10.0) H 07/28/21 21: RBC 5.05 10^6/uL (4.1-5.3) 07/28/21 21: Hgb 15.5 g/dL (11.7-16.6) 07/28/21: Hct 46.3 % (42.0-52.0) 07/28/21: MCV 91.7 fl (80-94) 07/28/21: MCH 30.7 pg (28.0-34.0) 07/28/21: MCHC 33.5 g/dL (30.0-36.0) 07/28/21: RDW 12.6 % (12.1-15.1) 07/28/21: Plt Count 235 10^3/cmm (130-400) 07/28/21: MPV 10.5 fL (7.4-10.4) H 07/28/21: Neut % (Auto) 82.0 % 07/28/21: Lymph % (Auto) 10.8 % 07/28/21: [place] % (Auto) 6.6 % 07/28/21: Eos % (Auto) 0.2 % 07/28/21: Baso % (Auto) 0.3 % 07/28/21: Neut # (Auto) 11.78 10^3/uL (1.8-7.7) H 07/28/21: Lymph # (Auto) 1.6 10^3/uL (0.8-4.8) 07/28/21: [place] # (Auto) 1.0 10^3/uL (0.2-0.9) H 07/28/21: Eos # (Auto) 0.0 10^3/uL (0.0-0.8) 03/04/22 21:29 Baso # (Auto) 0.1 10^3/uL (0.0-0.1) 07/28/21 21: Nucleated RBC % (auto) 0 % 07/28/21 21: Nucleated RBCs # 0.0 /100WBC 07/28/21 21:29 Sodium 134 mmol/L (136-145) L 07/28/21 21: Potassium 4.4 mmol/L (3.5-5.1) 07/28/21 21: Chloride 99 mmol/L (98-107) 07/28/21 21: Carbon Dioxide 18 mmol/L (22-29) L 07/28/21 21: Anion Gap 21.4 (5-19) H 07/28/21 21: BUN 19 mg/dL (8-23) 07/28/21 21: Creatinine 1.1 mg/dL (0.7-1.2) 07/28/21 21: GFR Calculation 66.8 mL/min (90-130) L 07/28/21 21: Glucose 179 mg/dL (65-115) H 07/28/21 21: Calculated Osmolality 285 mOsm/kg (285-295) 07/28/21: Calcium 10.1 mg/dL (8.5-10.5) 07/28/21 21: Total Bilirubin 0.9 mg/dL (0.15-1.2) 07/28/21 21: AST 20 U/L (0-40) 07/28/21 21: ALT 22 U/L (0-41) 07/28/21 21: Alkaline Phosphatase 80 IU/L (40-130) 07/28/21 21:29 Troponin T Baseline 16 ng/L (0-15) H 07/28/21 21:29 Troponin T 120 Minute 15.22 ng/L (0-15) H 07/28/21 23:36 Delta Troponin T -0.78 ABS# (0-10) L 07/28/21 23:36 NT-Pro-B Natriuret Pep 40 pg/mL (0-125) 07/28/21 21:29 Total Protein 7.3 g/dL (6.6-8.7) 07/28/21 21: Albumin 4.7 g/dL (3.5-5.2) 07/28/21 21:29 Globulin 2.6 g/dL (1.3-4.6) 07/28/21 21:29 Lipase 17 U/L (13-60) 07/28/21 21:29 Coronavirus 229E (PCR) Not detected (NOT DETECT) 07/28/21 21:40 SARS-CoV-2 (PCR) Not detected (NOT DETECT) 07/28/21 21:40 Discharge Plan Discharge Patient Disposition: Home Clinical Impression: Acute duodenitis Condition: Stable Prescriptions: New hydrocodone-acetaminophen 5-325 mg tablet 1 tab PO Q8H PRN (Reason: pain) Qty: 10 0RF Zofran 4 mg tablet 4 mg PO Q6H PRN (Reason: nausea and vomiting) Qty: 10 0RF Augmentin 875-125 mg tablet 1 tab PO BID Qty: 20 0RF No Action atenolol 25 mg tablet 25 mg PO BID 0RF losartan 100 mg tablet 100 mg PO DAILY 0RF atorvastatin 20 mg tablet 20 mg PO DAILY 0RF finasteride 5 mg tablet 5 mg PO DAILY 0RF tamsulosin 0.4 mg capsule 0.4 mg PO DAILY 0RF aspirin 81 mg tablet,chewable 81 mg PO DAILY 0RF cinnamon bark 500 mg capsule 1,000 mg PO DAILY 0RF turmeric root extract 500 mg capsule 1,000 mg PO BID 0RF diclofenac sodium 1 % gel 2 gm TOPICAL QID 0RF Rx Instructions: apply to single elbow, wrist or hand; for hand includes palm/fingers/back of hand Discharge Orders: Discharge ED (Routine); Ordered 07/29/21 Ordered By: Wyatt Reynolds Referrals: Catherine Law FNP [Primary Care Provider] - 1-3 days Patient Instructions: Duodenitis (ED) Activity Restrictions/Additional Instructions: Return for worsening pain despite treatment, vomiting liquids or medications, fever greater than 100 despite 2-3 doses of antibiotics, blood in the stool, any other concerning symptoms. Coding Level of Care Code ED Blast Hole Driller for Camryn Fields
[2021-07-28] MEDS: aspirin 81 mg Chew Tablet 324 MG PO (21:40)
[2021-07-28 21:41] LABS: Basophils # 0.1 10^3/uL (0.0-0.1); Basophils % 0.3 %; Eosinophils % 0.2 %; Hematocrit 46.3 % (42.0-52.0); Hemoglobin 15.5 g/dL (11.7-16.6); Lymphocytes # 1.6 10^3/uL (0.8-4.8); Lymphocytes % 10.8 %; Mean Corpuscular HGB Conc 33.5 g/dL (30.0-36.0); Mean Corpuscular Hemoglobin 30.7 pg (28.0-34.0); Mean Corpuscular Volume 91.7 fl (80-94); Mean Platelet Volume 10.5 fL (7.4-10.4); Monocytes % 6.6 %; Neutrophils # 11.78 10^3/uL (1.8-7.7); Nucleated Red Blood Cells % 0 %; Platelet Count 235 10^3/cmm (130-400); Red Blood Count 5.05 10^6/uL (4.1-5.3); Red Cell Distribution Width 12.6 % (12.1-15.1); White Blood Count 14.4 10^3/uL (4.0-10.0)
[2021-07-28 21:42] VITALS: BP 156/97; PULSE 81; RESP 14; O2SAT 96
[2021-07-28 22:06] LABS: Troponin(5th) Baseline 16 ng/L (0-15)
[2021-07-28 22:15] LABS: Alanine Aminotransferase 22 U/L (0-41); Albumin Level 4.7 g/dL (3.5-5.2); Alkaline Phosphatase 80 IU/L (40-130); Anion Gap 21.4 (5-19); Aspartate Amino Transferase 20 U/L (0-40); Blood Urea Nitrogen 19 mg/dL (8-23); Calcium 10.1 mg/dL (8.5-10.5); Carbon Dioxide 18 mmol/L (22-29); Chloride 99 mmol/L (98-107); Creatinine Clr Calc Pharmacy 75.2165; Globulin 2.6 g/dL (1.3-4.6); Glomerular Filtration Rate 66.8 mL/min (90-130); Glucose 179 mg/dL (65-115); Lipase 17 U/L (13-60); NT Pro B Type Natriuretic Pept 40 pg/mL (0-125); Osmolality Calculated 285 mOsm/kg (285-295); Potassium 4.4 mmol/L (3.5-5.1); Sodium 134 mmol/L (136-145); Total Bilirubin 0.9 mg/dL (0.15-1.2); Total Protein 7.3 g/dL (6.6-8.7)
--- NOTE | 2021-07-28 22:56 | CTR_ITS ---
PROCEDURE INFORMATION: Exam: CT Chest With Contrast; Diagnostic Exam date and time: 07/28/2021 10:56 PM Age: 66 years old Clinical indication: Nausea and vomiting; Shortness of breath; Prior surgery; Surgery date: 6+ months; Surgery type: Back; Patient HX: C/O cp w SOB and n/v/d; Additional info: Chest pain, SOB, n/v/d, abdominal pain, leukocytosis TECHNIQUE: Imaging protocol: Diagnostic computed tomography of the chest with contrast. Radiation optimization: All CT scans at this facility use at least one of these dose optimization techniques: automated exposure control; mA and/or kV adjustment per patient size (includes targeted exams where dose is matched to clinical indication); or iterative reconstruction. Contrast material: OMNI 300; Contrast volume: 90 ml; Contrast route: INTRAVENOUS (IV); COMPARISON: CT abdomen pelvis w con* [id number] 01/08/2020 10:16 AM RADIATION DOSE METRICS: Total DLP (mGy-cm): 2147.65 FINDINGS: Lungs: A calcified granuloma seen in the right lower lobe laterally. Pleural spaces: Unremarkable. No pneumothorax. No pleural effusion. Heart: Calcifications are seen in the coronary arteries. Aorta: Unremarkable. No aortic aneurysm. Lymph nodes: Unremarkable. No enlarged lymph nodes. Bones/joints: Unremarkable. No acute fracture. Soft tissues: Unremarkable. PROCEDURE INFORMATION: Exam: CT Abdomen And Pelvis With Contrast Exam date and time: 07/28/2021 10:56 PM Age: 66 years old Clinical indication: Nausea and vomiting; Shortness of breath; Prior surgery; Surgery date: 6+ months; Surgery type: Back; Patient HX: C/O cp w SOB and n/v/d; Additional info: Chest pain, SOB, n/v/d, abdominal pain, leukocytosis TECHNIQUE: Imaging protocol: Computed tomography of the abdomen and pelvis with contrast. Radiation optimization: All CT scans at this facility use at least one of these dose optimization techniques: automated exposure control; mA and/or kV adjustment per patient size (includes targeted exams where dose is matched to clinical indication); or iterative reconstruction. Contrast material: OMNI 300; Contrast volume: 90 ml; Contrast route: INTRAVENOUS (IV); COMPARISON: CT abdomen pelvis w con* [id number] 01/08/2020 10:16 AM RADIATION DOSE METRICS: Total DLP (mGy-cm): 2147.65 FINDINGS: Liver: There is mild hypoattenuation of the hepatic parenchyma compatible with fatty infiltration. Gallbladder and bile ducts: Normal. No calcified stones. No ductal dilation. Pancreas: See Stomach and bowel finding. Spleen: Normal. No splenomegaly. Adrenal glands: Normal. No mass. Kidneys and ureters: Normal. No hydronephrosis. Stomach and bowel: There is bowel wall thickening seen within the proximal duodenum. There are strandy opacity seen in the adjacent retroperitoneal fat fascia and along Gerota's fascia on the right, findings suggesting duodenitis and possible mild pancreatitis. Diverticula are present on the descending and sigmoid colon. There are no inflammatory changes present to suggest diverticulitis. Appendix: The appendix is visualized and is normal in configuration. Intraperitoneal space: Unremarkable. No free air. No significant fluid collection. Vasculature: Calcifications are seen within the abdominal aorta iliac arteries and origins of the celiac, superior mesenteric and renal arteries. Lymph nodes: Unremarkable. No enlarged lymph nodes. Urinary bladder: Unremarkable as visualized. Reproductive: Unremarkable as visualized. Bones/joints: There is a diffuse loss of disc height seen within the thoracolumbar spine with vacuum disc phenomenon seen at L3-L5 compatible with degenerative disc disease. Soft tissues: Small bilateral inguinal hernias are seen containing fat. Other findings: Strandy opacities are seen in the perinephric fascia bilaterally likely representing chronic scarring. CT/CT chest abd pel w con* IMPRESSION: There are no acute chest findings. IMPRESSION: 1. There is bowel wall thickening of the proximal duodenum with surrounding hazy in strandy opacities within the retroperitoneal fat and fascia and along Gerota's fascia on the right, findings compatible with duodenitis. Mild pancreatitis cannot be entirely excluded as well. 2. Mild fatty infiltration of liver 3. Diverticulosis of the descending and sigmoid colon 4. Normal appendix
[2021-07-28 22:57] VITALS: BP 168/129; PULSE 77; RESP 17; O2SAT 92
[2021-07-28] MEDS: lactated ringers 500 ML 999 ML IV (23:01)
[2021-07-28] MEDS: iohexol 300 mg/mL 100 mL Btl IV (23:13)
[2021-07-29 00:04] LABS: Troponin 5 2HR 15.22 ng/L (0-15)
[2021-07-29 00:04] LABS: Adenovirus Not Detected (NOT DETECT); Chlamydia Pneumoniae Not Detected (NOT DETECT); Coronavirus 229E,HKU1,NL63,OC4 Not Detected (NOT DETECT); Human Metapneumovirus Not Detected (NOT DETECT); Human Rhinovirus/Enterovirus Not Detected (NOT DETECT); Influenza A Not Detected (NOT DETECT); Influenza A H1 Not Detected (NOT DETECT); Influenza A H1-2009 Not Detected (NOT DETECT); Influenza A H3 Not Detected (NOT DETECT); Influenza B Not Detected (NOT DETECT); Mycoplasma Pneumoniae Not Detected (NOT DETECT); Parainfluenza Virus Type 1 Not Detected (NOT DETECT); Parainfluenza Virus Type 2 Not Detected (NOT DETECT); Parainfluenza Virus Type 3 Not Detected (NOT DETECT); Parainfluenza Virus Type 4 Not Detected (NOT DETECT); Respiratory Syncytial Virus A Not Detected (NOT DETECT); Respiratory Syncytial Virus B Not Detected (NOT DETECT); SARS-COV-2 Not Detected (NOT DETECT)
[2021-07-29 00:07] LABS: Troponin 5 2HR Delta -0.78 ABS# (0-10)
[2021-07-29 00:35] VITALS: BP 156/97; PULSE 84; RESP 18; O2SAT 97
[2021-07-29] MEDS: amoxicillin-clav 875-125 mg Tablet 1 TAB PO (01:00)
[2021-07-29] MEDS: ondansetron 2 mg/ML SDV 2 mL 4 MG IVP (01:00)
[2021-07-29 01:07] VITALS: BP 154/91; PULSE 83; RESP 19; O2SAT 95
== END 2021-07-29 01:09 | disposition home or self-care (01) ==
PROVIDERS: Emergency Medicine; Emergency Provider Emergency Medicine; PCP Nurse Practitioner Family
DX: K29.80 Duodenitis without bleeding (principal); Z79.82 Long term (current) use of aspirin; I10 Essential (primary) hypertension; Z20.822 Contact with and (suspected) exposure to COVID-19
CPT/HCPCS: 71045; 71260; 74177; 80053; 83690; 83880; 84484; 85025; 87635; 93005; 96361; 96374; 99284; J2405; Q9967

== ENCOUNTER 2024-02-05 17:23 | Inpatient (IN) | payer MEDICARE, SELFPAY ==
[2024-02-05] VITALS (22 sets, daily range): BP systolic 113–153; BP diastolic 67–97; PULSE 67–149; RESP 0–21; TEMP 36.8–36.9; O2SAT 90–99; BMI 31.3
--- NOTE | 2024-02-05 17:37 | ECG_ITS ---
[facility] Test Date: 2024-02-05 Pat Name: Ian Coleman Department: Room: Gender: Male [employer] Maker: : 1955 Requested By: Ruben Mancini Order Number: [id number] Maggie MD: JACKY WALL Measurements Intervals [place] Rate: 107 P: 0 PA: 0 QRS: -46 QRSD: 106 T: 40 QT: 331 QTc: 443 Interpretive Statements ATRIAL FIBRILLATION WITH RAPID VENTRICULAR RESPONSE WITH ABERRANT CONDUCTION OR VENTRICULAR PREMATURE COMPLEXES LEFT AXIS DEVIATION [QRS AXIS < -30] PATTERN CONSISTENT WITH PULMONARY DISEASE INCOMPLETE RIGHT BUNDLE BRANCH BLOCK [90+ ms QRS DURATION, TERMINAL R IN V1/V2, 40+ ms S IN I/aVL/V4/V5/V6] Compared to ECG 07/28/2021 23:04:51 Aberrant conduction of supraventricular beat(s) now present Incomplete right bundle-branch block now present Sinus rhythm no longer present Electronically Signed On 02-06-2024 11:49:24 CDT by JACKY WALL [id number]
--- NOTE | 2024-02-05 17:37 | XRR_ITS ---
PROCEDURE INFORMATION: Exam: XR Chest Exam date and time: 02/05/2024 6:00 PM Age: 68 years old Clinical indication: Cough and other: Covid positive; Additional info: Dyspnea/cough TECHNIQUE: Imaging protocol: Radiologic exam of the chest. Views: 1 view. COMPARISON: CT chest abdpel w/*[id number] 07/28/2021 11:12 PM FINDINGS: Lungs: Unremarkable. No consolidation. Pleural spaces: Unremarkable. No pleural effusion. No pneumothorax. Heart/Mediastinum: Unremarkable. No cardiomegaly. Bones/joints: Unremarkable. XR/XR chest 1V portable [id number] IMPRESSION: No acute findings.
--- NOTE | 2024-02-05 17:45 | ED_ITS ---
Documented by User: Ruben Campbell DO 02/06/24 07:03 HPI - General Adult 2 General: Chief complaint: COVID symptoms Stated complaint: SOB, Dizzy, N/V Time Seen by Provider: 02/05/24 17:36 History of Present Illness: 68-year-old male presents to the emergen cy room via EMS with complaints of rapid heart rate and generally not feeling well. Patient reports that several family members have COVID he began having symptoms today including shortness of breath rapid heart rate myalgias low-grade fever minimally productive cough. He has a known history of atrial fibrillation he is on atenolol for this he did take his medications today and route to the ER EMS gave 20 of Cardizem which initially decreased his rate from 130s and 140s down to about 85 shortly after arriving here his heart rate climbed back up to 143 again. Associated symptoms: Reports chest pain, dyspnea and palpitations; Deny rash Related Data Home Medications Medication Instructions Recorded Confirmed aspirin 81 mg chewable tablet 81 mg PO DAILY 11/24/19 01/05/20 atenolol 25 mg tablet 25 mg PO BID 11/24/19 01/05/20 atorvastatin 20 mg tablet 20 mg PO DAILY 11/24/19 02/06/24 cinnamon bark 500 mg capsule 1,000 mg PO DAILY 11/24/19 01/05/20 diclofenac sodium 1 % topical gel 2 gm topical QID 11/24/19 01/05/20 finasteride 5 mg tablet 5 mg PO DAILY 11/24/19 02/06/24 losartan 100 mg tablet 100 mg PO DAILY 11/24/19 02/06/24 tamsulosin 0.4 mg capsule 0.4 mg PO DAILY 11/24/19 02/06/24 turmeric root extract 500 mg 1,000 mg PO BID 11/24/19 01/05/20 capsule amlodipine 10 mg tablet 10 mg PO DAILY 02/06/24 02/06/24 metformin 1,000 mg tablet 1,000 mg PO BID 02/06/24 02/06/24 Previous Rx's Medication Instructions Recorded hydrocodone 5 mg-acetaminophen 325 1 tab PO Q8H PRN pain #10 tabs 07/29/21 mg tablet ondansetron HCl 4 mg tablet 4 mg PO Q6H PRN nausea and 07/29/21 (Zofran) vomiting #10 tabs Allergies Allergy/AdvReac Type Severity Reaction Status Date / Time No Known Allergies Allergy Verified 07/28/21 17:58 Review of Systems 2 Const: Denies: fever(s) or chills Card: Reports: chest pain, palpitations and irregular heart rhythm Resp: Reports: dyspnea and productive cough GI: Denies: abdominal pain : Denies: dysuria, urinary frequency or urinary urgency Musc: Denies: neck pain or back pain Skin/Breast: Denies: rash PFSH ED 2 PFSH: Medical History Arthritis Hypercholesteremia Hypercalcemia BPH (benign prostatic hyperplasia) Hypertension Surgical History History of colonoscopy with polypectomy (01/05/20) rectl mass, diverticulosis, descending colon polyp History of back surgery Social History Smoking and tobacco/nicotine status: never used tobacco/nicotine Alcohol intake: never Substance/Drug Use: never Physical Exam 2 Const: COMMON NORMALS: no acute distress GENERAL APPEARANCE: cooperative and comfortable ORIENTATION/CONSCIOUSNESS: Yes awake, Yes oriented to person, Yes oriented to place and Yes oriented to time HENMT: COMMON NORMALS: normocephalic, atraumatic and hearing grossly normal bilaterally HEAD & SCALP: normocephalic and atraumatic Resp: COMMON NORMALS: normal respiratory effort, No retractions, No use of accessory muscles and clear to auscultation bilaterally AUSCULTATION: clear to auscultation bilaterally Cardio: COMMON NORMALS: No murmurs present (Cardio) RATE: tachycardic R HYTHM: abnormal rhythm irregularly irregular GI: COMMON NORMALS: Soft to palpation and No hepatosplenomegaly present A USCULTATION: Yes normoactive bowel sounds PALPATION: Yes Soft to palpation, No Tenderness to palpation present (GI), No Guarding due to palpation present (GI) and Yes No hepatosplenomegaly present Extremity: COMMON NORMALS: normal to inspection, capillary refill normal, no clubbing, cyanosis or edema, no calf tenderness and no pedal edema Neuro: SENSORIUM/ORIENTATION: Yes oriented to person, Yes oriented to place and Yes oriented to time Skin: COMMON NORMALS: no rashes or lesions noted GENERAL SKIN EXAM: no rashes or lesions noted Course 2 Vital Signs: Vital signs: Vital Signs Temperature 98.9 F 02/06/24 06:00 Pulse Rate 122 H 02/06/24 06:00 Respiratory Rate 17 02/06/24 06:00 Blood Pressure 112/90 02/06/24 06:00 Pulse Oximetry 93 02/06/24 06:00 Oxygen Delivery Me thod Nasal Cannula 02/06/24 04:37 Oxygen Flow Rate 2 02/06/24 04:37 MDM - General Adult Medical Decision Making Care signed out to Dr. Salguero at change of shift. See final notes for diagnosis and disposition. Lab Data 02/06/24 04:08 02/06/24 04:08 Radiology Impressions Chest X-Ray 02/05/24 17:37 IMPRESSION: No acute findings. Laboratory Results WBC 10.24 10^3/uL (3.29-11.43) 02/05/24 17:47 RBC 4.27 10^6/uL (3.85-5.65) 02/05/24 17:47 Hgb 13.30 g/dL (11.27-16.99) 02/05/24 17:47 Hct 39.6 % (37-53) 02/05/24 17:47 MCV 92.7 fl (82-101) 02/05/24 17:47 MCH 31.1 pg (27-33) 02/05/24 17:47 MCHC 33.6 g/dL (30-55) 02/05/24 17:47 RDW 12.9 % (12.1-15.1) 02/05/24 17:47 Plt Count 192 10^3/cmm (157-399) 02/05/24 17:47 MPV 10.4 fL (7.4-10.4) 02/05/24 17:47 Neut % (Auto) 80.5 % 02/05/24 17:47 Lymph % (Auto) 8.5 % 02/05/24 17:47 [place] % (Auto) 9.5 % 02/05/24 17:47 Eos % (Auto) 0.7 % 02/05/24 17:47 Baso % (Auto) 0.4 % 02/05/24 17:47 Neut # (Auto) 8.25 10^3/uL (1.8-7.7) H 02/05/24 17:47 Lymph # (Auto) 0.9 10^3/uL (0.8-4.8) 02/05/24 17:47 [place] # (Auto) 1.0 10^3/uL (0.2-0.9) H 02/05/24 17:47 Eos # (Auto) 0.1 10^3/uL (0.0-0.8) 02/05/24 17:47 Baso # (Auto) 0.0 10^3/uL (0.0-0.1) 02/05/24 17:47 Nucleated RBC % (auto) 0 % 02/05/24 17:47 Nucleated RBCs # 0.0 /100WBC 02/05/24 17:47 Sodium 140 mmol/L (136-145) 02/05/24 17:47 Potassium 4.4 mmol/L (3.5-5.1) 02/05/24 17:47 Chloride 103 mmol/L (98-107) 02/05/24 17:47 Carbon Dioxide 22 mmol/L (22-29) 02/05/24 17:47 Anion Gap 19.4 (5-19) H 02/05/24 17:47 BUN 13 mg/dL (8-23) 02/05/24 17:47 Creatinine 0.8 mg/dL (0.7-1.2) 02/05/24 17:47 GFR Calculation 95.8 mL/min (90-130) 02/05/24 17:47 Glucose 165 mg/dL (65-115) H 02/05/24 17:47 Calculated Osmolality 294 mOsm/kg (285-295) 02/05/24 17:47 Calcium 9.3 mg/dL (8.5-10.5) 02/05/24 17:47 Total Bilirubin 0.9 mg/dL (0.15-1.2) 02/05/24 17:47 AST 14 U/L (0-40) 02/05/24 17:47 ALT 12 U/L (0-41) 02/05/24 17:47 Alkaline Phosphatase 64 U/L (40-130) 02/05/24 17:47 Troponin T Baseline 12 ng/L (0-15) 02/05/24 17:47 Troponin T 120 Minute 12.29 ng/L (0-15) 02/05/24 19:11 Delta Troponin T 0.29 ABS# (0-10) 02/05/24 19:11 Total Protein 6.5 g/dL (6.6-8.7) L 02/05/24 17:47 Albumin 4.4 g/dL (3.5-5.2) 02/05/24 17:47 Globulin 2.1 g/dL (1.3-4.6) 02/05/24 17:47 Urine Color Yellow (Yellow) 02/05/24 18:16 Urine Appearance Clear (CLEAR) 02/05/24 18:16 Urine pH 7.0 (5-7) 02/05/24 18:16 Ur Specific [place] 1.013 (1.005-1.030) 02/05/24 18:16 Urine Protein Negative (Negative) 02/05/24 18:16 Urine Glucose (UA) 1+ (Normal) H 02/05/24 18:16 Urine Ketones 1+ (Negative) H 02/05/24 18:16 Urine Blood Negative (Negative) 02/05/24 18:16 Urine Nitrate Negative (Negative) 02/05/24 18:16 Urine Bilirubin Negative (Negative) 02/05/24 18:16 Urine Urobilinogen 0.2 mg/dL (Negative) 02/05/24 18:16 Ur Leukocyte Esterase Negative (Negative) 02/05/24 18:16 Urine RBC 0-2 /hpf (0-2) 02/05/24 18:16 Urine WBC 0-5 /hpf (0-5) 02/05/24 18:16 Ur Squamous Epith Cells 0-5 /hpf (0-5) 02/05/24 18:16 Amorphous Sediment Not Reportable 02/05/24 18:16 Urine Bacteria None seen /hpf (NONE) 02/05/24 18:16 Hyaline Casts 1.65 /lpf 02/05/24 18:16 Coronavirus (PCR) Positive (Negative) A 02/05/24 18:16 Influenza A (PCR) Negative (Negative) 02/05/24 18:16 Influenza Type B (PCR) Negative (Negative) 02/05/24 18:16 RSV (PCR) Negative (Negative) 02/05/24 18:16 Discharge Plan Discharge Patient Disposition: Admitted As Inpatient Admit Provider: Fitz Saba Clinical Impression: COVID-19, Atrial fibrillation with rapid ventricular response Condition: Stable Coding Level of Care Code ED Surveillance Camera Technician for Camryn Fields Documented by User: Zulema Salguero MD 02/05/24 20:01 HPI - General Adult 2 General: Chief complaint: COVID symptoms Stated complaint: SOB, Dizzy, N/V Time Seen by Provider: 02/05/24 17:36 Related Data Home Medications Medication Instructions Recorded Confirmed aspirin 81 mg chewable tablet 81 mg PO DAILY 11/24/19 01/05/20 atenolol 25 mg tablet 25 mg PO BID 11/24/19 01/05/20 atorvastatin 20 mg tablet 20 mg PO DAILY 11/24/19 02/06/24 cinnamon bark 500 mg capsule 1,000 mg PO DAILY 11/24/19 01/05/20 diclofenac sodium 1 % topical gel 2 gm topical QID 11/24/19 01/05/20 finasteride 5 mg tablet 5 mg PO DAILY 11/24/19 02/06/24 losartan 100 mg tablet 100 mg PO DAILY 11/24/19 02/06/24 tamsulosin 0.4 mg capsule 0.4 mg PO DAILY 11/24/19 02/06/24 turmeric root extract 500 mg 1,000 mg PO BID 11/24/19 01/05/20 capsule amlodipine 10 mg tablet 10 mg PO DAILY 02/06/24 02/06/24 metformin 1,000 mg tablet 1,000 mg PO BID 02/06/24 02/06/24 Previous Rx's Medication Instructions Recorded hydrocodone 5 mg-acetaminophen 325 1 tab PO Q8H PRN pain #10 tabs 07/29/21 mg tablet ondansetron HCl 4 mg tablet 4 mg PO Q6H PRN nausea and 07/29/21 (Zofran) vomiting #10 tabs Allergies Allergy/AdvReac Type Severity Reaction Status Date / Time No Known Allergies Allergy Verified 07/28/21 17:58 [facility] ED 2 [facility]: Medical History Arthritis Hypercholesteremia Hypercalcemia BPH (benign prostatic hyperplasia) Hypertension Surgical History History of colonoscopy with polypectomy (01/05/20) rectl mass, diverticulosis, descending colon polyp History of back surgery Social History Smoking and tobacco/nicotine status: never used tobacco/nicotine Alcohol intake: never Substance/Drug Use: never Course 2 Vital Signs: Vital signs: Vital Signs Temperature 98.9 F 02/06/24 06:00 Pulse Rate 122 H 02/06/24 06:00 Respiratory Rate 17 02/06/24 06:00 Blood Pressure 112/90 02/06/24 06:00 Pulse Oximetry 93 02/06/24 06:00 Oxygen Delivery Wa thod Nasal Cannula 02/06/24 04:37 Oxygen Flow Rate 2 02/06/24 04:37 MDM - General Adult Medical Decision Making Care signed out to Dr. Salguero at change of shift. See final notes for diagnosis and disposition. Patient care was transitioned to md at shift change. Consultation: I spoke with Dr. Saba who agrees to admission. Patient has had A-fib with RVR and has been given diltiazem and a dill drip. He is COVID-positive. Otherwise lab work is fairly unremarkable. Assessment and plan: COVID-19 A-fib with RVR ?IV diltiazem bolus and a diltiazem drip. -I discussed the patient with the hospitalist on-call who is admitting the patient. - Discussed findings and plan with patient. Answered any questions. - All laboratory values were reviewed and interpreted personally by myself, the ER physician - All imaging was reviewed and interpreted personally by myself, the ER physician. - Evaluation and treatment of this problem were appropriate in the emergency setting Lab Data 02/06/24 04:08 02/06/24 04:08 Radiology Impressions Chest X-Ray 02/05/24 17:37 IMPRESSION: No acute findings. Laboratory Results WBC 10.24 10^3/uL (3.29-11.43) 02/05/24 17:47 RBC 4.27 10^6/uL (3.85-5.65) 02/05/24 17:47 Hgb 13.30 g/dL (11.27-16.99) 02/05/24 17:47 Hct 39.6 % (37-53) 02/05/24 17:47 MCV 92.7 fl (82-101) 02/05/24 17:47 MCH 31.1 pg (27-33) 02/05/24 17:47 MCHC 33.6 g/dL (30-55) 02/05/24 17:47 RDW 12.9 % (12.1-15.1) 02/05/24 17:47 Plt Count 192 10^3/cmm (157-399) 02/05/24 17:47 MPV 10.4 fL (7.4-10.4) 02/05/24 17:47 Neut % (Auto) 80.5 % 02/05/24 17:47 Lymph % (Auto) 8.5 % 02/05/24 17:47 [place] % (Auto) 9.5 % 02/05/24 17:47 Eos % (Auto) 0.7 % 02/05/24 17:47 Baso % (Auto) 0.4 % 02/05/24 17:47 Neut # (Auto) 8.25 10^3/uL (1.8-7.7) H 02/05/24 17:47 Lymph # (Auto) 0.9 10^3/uL (0.8-4.8) 02/05/24 17:47 [place] # (Auto) 1.0 10^3/uL (0.2-0.9) H 02/05/24 17:47 Eos # (Auto) 0.1 10^3/uL (0.0-0.8) 02/05/24 17:47 Baso # (Auto) 0.0 10^3/uL (0.0-0.1) 02/05/24 17:47 Nucleated RBC % (auto) 0 % 02/05/24 17:47 Nucleated RBCs # 0.0 /100WBC 02/05/24 17:47 Sodium 140 mmol/L (136-145) 02/05/24 17:47 Potassium 4.4 mmol/L (3.5-5.1) 02/05/24 17:47 Chloride 103 mmol/L (98-107) 02/05/24 17:47 Carbon Dioxide 22 mmol/L (22-29) 02/05/24 17:47 Anion Gap 19.4 (5-19) H 02/05/24 17:47 BUN 13 mg/dL (8-23) 02/05/24 17:47 Creatinine 0.8 mg/dL (0.7-1.2) 02/05/24 17:47 GFR Calculation 95.8 mL/min (90-130) 02/05/24 17:47 Glucose 165 mg/dL (65-115) H 02/05/24 17:47 Calculated Osmolality 294 mOsm/kg (285-295) 02/05/24 17:47 Calcium 9.3 mg/dL (8.5-10.5) 02/05/24 17:47 Total Bilirubin 0.9 mg/dL (0.15-1.2) 02/05/24 17:47 AST 14 U/L (0-40) 02/05/24 17:47 ALT 12 U/L (0-41) 02/05/24 17:47 Alkaline Phosphatase 64 U/L (40-130) 02/05/24 17:47 Troponin T Baseline 12 ng/L (0-15) 02/05/24 17:47 Troponin T 120 Minute 12.29 ng/L (0-15) 02/05/24 19:11 Delta Troponin T 0.29 ABS# (0-10) 02/05/24 19:11 Total Protein 6.5 g/dL (6.6-8.7) L 02/05/24 17:47 Albumin 4.4 g/dL (3.5-5.2) 02/05/24 17:47 Globulin 2.1 g/dL (1.3-4.6) 02/05/24 17:47 Urine Color Yellow (Yellow) 02/05/24 18:16 Urine Appearance Clear (CLEAR) 02/05/24 18:16 Urine pH 7.0 (5-7) 02/05/24 18:16 Ur Specific [place] 1.013 (1.005-1.030) 02/05/24 18:16 Urine Protein Negative (Negative) 02/05/24 18:16 Urine Glucose (UA) 1+ (Normal) H 02/05/24 18:16 Urine Ketones 1+ (Negative) H 02/05/24 18:16 Urine Blood Negative (Negative) 02/05/24 18:16 Urine Nitrate Negative (Negative) 02/05/24 18:16 Urine Bilirubin Negative (Negative) 02/05/24 18:16 Urine Urobilinogen 0.2 mg/dL (Negative) 02/05/24 18:16 Ur Leukocyte Esterase Negative (Negative) 02/05/24 18:16 Urine RBC 0-2 /hpf (0-2) 02/05/24 18:16 Urine WBC 0-5 /hpf (0-5) 02/05/24 18:16 Ur Squamous Epith Cells 0-5 /hpf (0-5) 02/05/24 18:16 Amorphous Sediment Not Reportable 02/05/24 18:16 Urine Bacteria None seen /hpf (NONE) 02/05/24 18:16 Hyaline Casts 1.65 /lpf 02/05/24 18:16 Coronavirus (PCR) Positive (Negative) A 02/05/24 18:16 Influenza A (PCR) Negative (Negative) 02/05/24 18:16 Influenza Type B (PCR) Negative (Negative) 02/05/24 18:16 RSV (PCR) Negative (Negative) 02/05/24 18:16 All radiology interpretation(s) finalized by discharge Discharge Plan Discharge Patient Disposition: Admitted As Inpatient Admit Provider: Fitz Saba Clinical Impression: COVID-19, Atrial fibrillation with rapid ventricular response Condition: Stable Coding Level of Care Code ED Surveillance Camera Technician for Camryn Fields
[2024-02-05 17:52] LABS: Basophils % 0.4 %; Eosinophils # 0.1 10^3/uL (0.0-0.8); Eosinophils % 0.7 %; Hematocrit 39.6 % (37-53); Lymphocytes # 0.9 10^3/uL (0.8-4.8); Lymphocytes % 8.5 %; Mean Corpuscular HGB Conc 33.6 g/dL (30-55); Mean Corpuscular Hemoglobin 31.1 pg (27-33); Mean Corpuscular Volume 92.7 fl (82-101); Mean Platelet Volume 10.4 fL (7.4-10.4); Monocytes % 9.5 %; Neutrophils # 8.25 10^3/uL (1.8-7.7); Neutrophils % 80.5 %; Nucleated Red Blood Cells % 0 %; Platelet Count 192 10^3/cmm (157-399); Red Blood Count 4.27 10^6/uL (3.85-5.65); Red Cell Distribution Width 12.9 % (12.1-15.1); White Blood Count 10.24 10^3/uL (3.29-11.43)
[2024-02-05] MEDS: dilTIAZem 5 mg/mL SDV 5 mL 10 MG IVP (18:07)
[2024-02-05] MEDS: dilTIAZem 100 MG in sodium chloride 0.9% (add-van) 100 ML IV (18:11)
[2024-02-05 18:20] LABS: Troponin(5th) Baseline 12 ng/L (0-15)
[2024-02-05 18:27] LABS: Alanine Aminotransferase 12 U/L (0-41); Albumin Level 4.4 g/dL (3.5-5.2); Alkaline Phosphatase 64 U/L (40-130); Anion Gap 19.4 (5-19); Aspartate Amino Transferase 14 U/L (0-40); Blood Urea Nitrogen 13 mg/dL (8-23); Calcium 9.3 mg/dL (8.5-10.5); Carbon Dioxide 22 mmol/L (22-29); Chloride 103 mmol/L (98-107); Creatinine Clr Calc Pharmacy 93.6155; Globulin 2.1 g/dL (1.3-4.6); Glomerular Filtration Rate 95.8 mL/min (90-130); Glucose 165 mg/dL (65-115); Osmolality Calculated 294 mOsm/kg (285-295); Potassium 4.4 mmol/L (3.5-5.1); Sodium 140 mmol/L (136-145); Total Bilirubin 0.9 mg/dL (0.15-1.2); Total Protein 6.5 g/dL (6.6-8.7)
[2024-02-05 18:36] LABS: Bilirubin Urine Negative (Negative); Blood Urine Negative (Negative); Glucose Urine UA 1+ (Normal); Ketones Urine 1+ (Negative); Leukocyte Esterase Urine Negative (Negative); Nitrate Urine Negative (Negative); Protein Urine Negative (Negative); Specific Gravity, Urine 1.013 (1.005-1.030); Urine Appearance Clear (CLEAR); Urine Color Yellow (Yellow); Urobilinogen Urine 0.2 mg/dL (Negative)
[2024-02-05 18:41] LABS: Add Urine Microscopic? YES; Bacteria Urine None Seen /hpf; Hyaline Casts Urine 1.65 /lpf; RBC Urine 0-2 /hpf (0-2); Squamous Epithelial Cell Urine 0-5 /hpf (0-5); WBC Urine 0-5 /hpf (0-5)
[2024-02-05] MEDS: ondansetron 2 mg/ML SDV 2 mL 8 MG IVP (18:53)
[2024-02-05 19:12] LABS: Influenza A NEGATIVE (Negative); Influenza B NEGATIVE (Negative); Respiratory Syncytial Virus Ce NEGATIVE (Negative)
--- NOTE | 2024-02-05 19:15 | ECG_ITS ---
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1955 Requested By: Ruben Mancini Order Number: [id number] Reading MD: JACKY WALL Measurements Intervals [place] Rate: 96 P: 0 [place]: 0 QRS: -39 QRSD: 99 T: 30 QT: 354 QTc: 448 Interpretive Statements ATRIAL FIBRILLATION LEFT AXIS DEVIATION [QRS AXIS < -30] PATTERN CONSISTENT WITH PULMONARY DISEASE Compared to ECG 02/05/2024 17:34:57 Aberrant conduction of supraventricular beat(s) no longer present Ventricular premature complex(es) no longer present Incomplete right bundle-branch block no longer present Electronically Signed On 02-06-2024 11:57:23 CDT by JACKY WALL [email or web address] [email or web address].[employer]/store/[id number]
[2024-02-05 19:26] LABS: Covid PCR Positive (Negative)
[2024-02-05 19:43] LABS: Troponin 5 2HR 12.29 ng/L (0-15); Troponin 5 2HR Delta 0.29 ABS# (0-10)
--- NOTE | 2024-02-05 21:11 | P.HP_ITS ---
Providers/Chief Complaint 2 Admitting Physician: Fitz Saba MD Primary Care Provider: MARCUS Castellano Chief Complaint: SOB, Dizzy, N/V History of Present Illness Ian Coleman is a 68 year old male with a past medical history of atrial fibrillation, not on anticoagulation?, Hypertension, hyperlipidemia, history of rectal carcinoma s/p resection, status post chemotherapy, who presents [facility] due to fatigue, malaise, cough, COVID-19 infection. Currently patient alert and oriented x 3, he is quite fatigued and tired he is on 1 L, no evidence of respiratory distress, his is also sick she thinks she also has COVID, patient reports fatigue, malaise, intermittent shortness of breath, tachycardia, chest palpitations no chest pain, cough, fatigue, malaise, myalgia, low-grade fevers. In the emergency room patient was diagnosed with A-fib with RVR, with a history of A-fib, started on Cardizem drip. Review of Systems 2 Const: Reports: fever(s), chills, body aches, fatigue and malaise Card: Reports: palpitations; Denies: chest pain Resp: Reports: dyspnea and non-productive cough GI: Reports: nausea; Denies: abdominal pain or vomiting Neuro: Denies: headache(s) Medications/Allergies Home Medications Medication Instructions Recorded Confirmed Last Taken Type aspirin 81 mg chewable tablet 81 mg PO DAILY 11/24/19 01/05/20 01/04/20 History atenolol 25 mg tablet 25 mg PO BID 11/24/19 01/05/20 01/05/20 History atorvastatin 20 mg tablet 20 mg PO DAILY 11/24/19 01/05/20 01/04/20 History cinnamon bark 500 mg capsule 1,000 mg PO DAILY 11/24/19 01/05/20 12/29/19 History diclofenac sodium 1 % topical gel 2 gm topical QID 11/24/19 01/05/20 01/04/20 History finasteride 5 mg tablet 5 mg PO DAILY 11/24/19 01/05/20 01/04/20 History losartan 100 mg tablet 100 mg PO DAILY 11/24/19 01/05/20 01/04/20 History tamsulosin 0.4 mg capsule 0.4 mg PO DAILY 11/24/19 01/05/20 01/04/20 History turmeric root extract 500 mg 1,000 mg PO BID 11/24/19 01/05/20 01/04/20 History capsule amoxicillin 875 mg-potassium 1 tab PO BID #20 tabs 07/29/21 Unknown Rx clavulanate 125 mg tablet (Augmentin) hydrocodone 5 mg-acetaminophen 325 1 tab PO Q8H PRN pain #10 tabs 07/29/21 Unknown Rx mg tablet ondansetron HCl 4 mg tablet 4 mg PO Q6H PRN nausea and 07/29/21 Unknown Rx (Zofran) vomiting #10 tabs Allergies Allergy/AdvReac Type Severity Reaction Status Date / Time No Known Allergies Allergy Verified 07/28/21 17:58 PFSH Acute 2 PFSH: Medical History Arthritis Hypercholesteremia Hypercalcemia BPH (benign prostatic hyperplasia) Hypertension Surgical History History of colonoscopy with polypectomy (01/05/20) rectl mass, diverticulosis, descending colon polyp History of back surgery Social History Smoking and tobacco/nicotine status: never used tobacco/nicotine Alcohol intake: never Substance/Drug Use: never Vitals/I&O/Wt Last Vital Signs Temp 98.3 F 02/05/24 17:25 Pulse 145 H 02/05/24 20:30 Resp 18 02/05/24 20:30 BP 125/92 02/05/24 20:30 Pulse Ox 98 02/05/24 20:30 O2 Del Method Nasal Cannula 02/05/24 20:00 O2 Flow Rate 1 02/05/24 20:00 02/05/24 02/05/24 02/05/24 06:59 14:59 22:59 Intake Total 18.958 / 18.958 Balance 18.958 / 18.958 Weight last 48 hrs Weight 90.718 kg Physical Exam 2 Const: COMMON NORMALS: no acute distress and patient oriented x3 HENMT: COMMON NORMALS: normocephalic HEAD & SCALP: normocephalic Eye: COMMON NORMALS: Equal, round and reactive pupils present Neck/C-Spine: COMMON NORMALS: no JVD Resp: COMMON NORMALS: normal respiratory effort, No retractions and No use of accessory muscles AUSCULTATION: wheezes Cardio: COMMON NORMALS: no JVD, regular rate, regular rhythm, S1 normal heart sound present and S2 normal heart sound present RATE: tachycardic RHYTHM: abnormal rhythm irregularly irregular HEART SOUNDS: S1 normal heart sound present and S2 normal heart sound present GI: COMMON NORMALS: Normal to inspection, nondistended, normoactive bowel sounds present, Soft to palpation and non-tender Extremity: COMMON NORMALS: no calf tenderness and no pedal edema Neuro: COMMON NORMALS: patient oriented x3, CN's II-XII intact bilaterally and moves all extremities Psych: COMMON NORMALS: mental status grossly normal Data 02/05/24 17:47 02/05/24 17:47 A&P Assessment and plan (1) Pneumonia due to COVID-19 virus: (2) Atrial fibrillation with rapid ventricular response: Plan COVID-19 pneumonia ? With acute hypoxia requiring 1 L, complaints of cough, shortness of breath -History of immunocompromise state, rectal carcinoma status post chemotherapy ? Plan ? Start Decadron 6 mg IV push every 24 hours ? DuoNeb -Budesonide ? Remdesivir 200 mg IV push once, followed by 100 mg IV every 24 hours ? Full code ? Lovenox for DVT prophylaxis A-fib with RVR -Discontinue Cardizem drip ? CHADS2 Vasc score is 2, moderate risk, is not on anticoagulant therapy? Started on therapeutic Lovenox [facility] Attestations 2 Medical Necessity Statement*: Patient requires hospitalization, inpatient, greater than 2 minutes, for COVID- 19 pneumonia, A-fib with RVR Diagnoses Pneumonia due to COVID-19 virus U07.1; J12.82 Atrial fibrillation with rapid ventricular response I48.91
[2024-02-05] MEDS: dexamethasone 10 mg/mL INJ 6 MG IVP (21:48)
[2024-02-05] MEDS: enoxaparin 100 mg/mL Syringe 90 MG SUBCUT (21:49)
[2024-02-05] MEDS: pantoprazole 40 mg SDV IVP (21:49)
[2024-02-05] MEDS: remdesivir 200 MG in sodium chloride 0.9% (100 ml) 60 ML 100 MG IV (21:49)
[2024-02-05 21:51] LABS: Bacteria Urine None Seen /hpf; Hyaline Casts Urine 0-4 /lpf; RBC Urine 0-2 /hpf (0-2); Squamous Epithelial Cell Urine 0-5 /hpf (0-5); WBC Urine 0-5 /hpf (0-5)
[2024-02-05 21:57] LABS: Add Urine Microscopic? YES; Bilirubin Urine Negative (Negative); Blood Urine Negative (Negative); Glucose Urine UA 3+ (Normal); Ketones Urine 2+ (Negative); Leukocyte Esterase Urine Negative (Negative); Nitrate Urine Negative (Negative); Protein Urine Negative (Negative); Specific Gravity, Urine 1.017 (1.005-1.030); Urine Appearance Clear (CLEAR); Urine Color Yellow (Yellow); pH Urine 6.5 (5-7)
[2024-02-05 22:03] LABS: D Dimer 0.44 ug/mLFEU (0-0.59)
[2024-02-05 22:05] LABS: Lactic Sepsis W/Reflex 1.7 mmol/L (0.5-2.2)
[2024-02-05 22:16] LABS: NT Pro B Type Natriuretic Pept 128 pg/mL (0-125); Procalcitonin 0.04 ng/mL (0-0.5); Thyroid Stimulating Hormone 0.55 uIU/mL (0.27-4.20)
--- NOTE | 2024-02-05 22:23 | PC.NURSE ---
While nurse was in the room patient went from rapid afib to bradycardic with HR in the 40s. The patient cardizem gtt was put on hold. The patient became very nauseous at the time. With the gtt stopped the patients HR is back up to 100-110s. Made aware. said to monitor patient off the gtt for now.
[2024-02-05 22:27] LABS: Cholesterol 115 mg/dL (0-200); HDL Cholesterol 46 mg/dL (60-100); LDL Cholesterol Calculated 57 mg/dL (50-129); LDL HDL Ratio 1.24 RATIO (0.00-3.22); Triglycerides 58 mg/dL (0-150)
[2024-02-05 22:36] LABS: Estmated Average Glucose 120; Hemoglobin A1C 5.8 % (4.0-6.0)
[2024-02-05 23:38] LABS: Troponin 5 6HR 16.52 ng/L (0-15); Troponin 5 6HR Delta 4.52 ng/L (0-12)
[2024-02-05] MEDS: ipratropium-albuterol 3 mL Neb INHALATION (23:40)
--- NOTE | 2024-02-05 23:40 | ECG_ITS ---
[facility] Test Date: 2024-02-05 Pat Name: Ian Coleman Department: Room: 107 Gender: Male Assembly Hand: : 1955 Requested By: Ruben Mancini Order Number: [id number] Maggie MD: JACKY WALL Measurements Intervals [place] Rate: 100 P: 0 [place]: 0 QRS: -42 QRSD: 99 T: 32 QT: 342 QTc: 441 Interpretive Statements ATRIAL FIBRILLATION WITH RAPID VENTRICULAR RESPONSE WITH ABERRANT CONDUCTION OR VENTRICULAR PREMATURE COMPLEXES LEFT AXIS DEVIATION [QRS AXIS < -30] PATTERN CONSISTENT WITH PULMONARY DISEASE INCOMPLETE RIGHT BUNDLE BRANCH BLOCK [90+ ms QRS DURATION, TERMINAL R IN V1/V2, 40+ ms S IN I/aVL/V4/V5/V6] Compared to ECG 02/05/2024 19:15:52 Ventricular premature complex(es) now present Aberrant conduction of supraventricular beat(s) now present Incomplete right bundle-branch block now present Electronically Signed On 02-06-2024 11:57:04 CDT by JACKY WALL [id number]
[2024-02-06] VITALS (27 sets, daily range): BP systolic 105–130; BP diastolic 62–90; PULSE 73–134; RESP 14–22; TEMP 36.4–37.3; O2SAT 92–98
[2024-02-06 04:26] LABS: Basophils % 0.1 %; Hematocrit 41.4 % (37-53); Lymphocytes # 0.6 10^3/uL (0.8-4.8); Lymphocytes % 8.4 %; Mean Corpuscular HGB Conc 32.9 g/dL (30-55); Mean Corpuscular Hemoglobin 30.8 pg (27-33); Mean Corpuscular Volume 93.9 fl (82-101); Mean Platelet Volume 10.7 fL (7.4-10.4); Monocytes # 0.1 10^3/uL (0.2-0.9); Monocytes % 0.9 %; Neutrophils # 6.03 10^3/uL (1.8-7.7); Neutrophils % 90.3 %; Nucleated Red Blood Cells % 0 %; Platelet Count 188 10^3/cmm (157-399); Red Blood Count 4.41 10^6/uL (3.85-5.65); Red Cell Distribution Width 12.8 % (12.1-15.1); White Blood Count 6.68 10^3/uL (3.29-11.43)
[2024-02-06 04:49] LABS: Blood Urea Nitrogen 11 mg/dL (8-23); Calcium 8.4 mg/dL (8.5-10.5); Carbon Dioxide 23 mmol/L (22-29); Chloride 101 mmol/L (98-107); Creatinine Clr Calc Pharmacy 93.6155; Glomerular Filtration Rate 111.8 mL/min (90-130); Glucose 183 mg/dL (65-115); Osmolality Calculated 286 mOsm/kg (285-295); Sodium 136 mmol/L (136-145)
[2024-02-06 04:51] LABS: Anion Gap 16.1 (5-19); Potassium 4.1 mmol/L (3.5-5.1)
--- NOTE | 2024-02-06 06:09 | PC.NURSE ---
Messaged Dr Saba regarding patients HR. The patients HR had been running 110s but is sustained in 120s. Asked if he wanted nurse to try restarting Cardizem at a low rate or if he wanted patients 9am atenolol 25mg given early. The patient is not symptomatic right now, said he feels fine. BP 112/90. ordered to start PO cardizem 30mg Q6H.
[2024-02-06] MEDS: dilTIAZem 30 mg Tablet PO ×4 (06:25→23:54)
[2024-02-06] MEDS: losartan 50 mg Tablet 100 MG PO (08:41)
[2024-02-06] MEDS: finasteride 5 mg Tablet PO (08:42)
[2024-02-06] MEDS: atorvastatin 40 mg Tablet PO (08:42)
[2024-02-06] MEDS: aspirin 81 mg Chew Tablet PO (08:42)
[2024-02-06] MEDS: enoxaparin 100 mg/mL Syringe 90 MG SUBCUT ×2 (08:42→21:02)
[2024-02-06] MEDS: tamsulosin 0.4 mg Capsule PO (08:42)
[2024-02-06] MEDS: atenolol 50 mg Tablet 25 MG PO (08:42)
[2024-02-06] MEDS: budesonide 0.5 mg/2 mL Neb INHALATION ×2 (09:13→21:13)
[2024-02-06] MEDS: ipratropium-albuterol 3 mL Neb INHALATION ×3 (09:14→21:13)
--- NOTE | 2024-02-06 11:09 | P.PN_ITS ---
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 Vitals/I&O/Wt Last Vital Signs Temp 98.4 F 02/06/24 08:00 Pulse 92 02/06/24 09:24 Resp 20 H 02/06/24 09:14 BP 105/72 02/06/24 08:41 Pulse Ox 95 02/06/24 09:14 O2 Del Method Nasal Cannula 02/06/24 09:14 O2 Flow Rate 1 02/06/24 09:14 02/05/24 02/06/24 02/06/24 22:59 06:59 14:59 Intake Total 36.458 / 36.458 100 / 136.458 Output Total 200 / 200 1000 / 1200 400 / 400 Balance -163.542 / -163.542 -900 / -1063.542 -400 / -400 Weight last 48 hrs Weight 90.718 kg Weight 90.718 kg Weight 90.718 kg Physical Exam 2 Narrative: Patient is awake and alert Pleasant cooperative man in seems to be in good health for his age No active sign of heart failure Currently on 1 L nasal cannula Awake and alert Nonfocal neuroexam No audible stridor or wheezing Lower extremity no swelling at all Data 02/06/24 04:08 02/06/24 04:08 Micro: Microbiology 02/05/24 21:30 Blood Culture - Preliminary Blood SPECIMEN COLLECTED 02/05/24 21:37 Blood Culture - Preliminary Blood SPECIMEN COLLECTED A&P Assessment and plan (1) Atrial fibrillation with rapid ventricular response: (2) COVID-19: (3) Pneumonia due to COVID-19 virus: Plan A-fib RVR: Heart rate improved Blood pressure stable Patient will need Eliquis at the time of discharge Patient is currently on Cardizem I will discontinue atenolol History of hypertension: Blood pressure soft this morning, held losartan and discontinue atenolol COVID-19 pneumonia Currently on 1 L nasal cannula I do not think patient will need to stay here for 5 days to receive aggressive care for now I will continue aggressive anticoagulant regimen He may be able to go home in next 24 to 48 hours if remains afebrile Will switch to Eliquis at the time of discharge Full code Currently on cardiac diet For vertigo I will request PT to do Socorro's maneuver Attestations 2 Medical Necessity Statement*: Likely discharge in next 24 to 48 hours Diagnoses Atrial fibrillation with rapid ventricular response I48.91 COVID-19 U07.1 Pneumonia due to COVID-19 virus U07.1; J12.82
[2024-02-06] MEDS: fexofenadine 60 mg Tablet PO (14:22)
[2024-02-06] MEDS: remdesivir 100 MG in sodium chloride 0.9% (100 ml) 80 ML IV (17:23)
[2024-02-06] MEDS: pantoprazole 40 mg SDV IVP (21:02)
[2024-02-07] VITALS (8 sets, daily range): BP systolic 117–123; BP diastolic 61–76; PULSE 72–98; RESP 14–21; TEMP 36.6–37.1; O2SAT 92–95
[2024-02-07] MEDS: ipratropium-albuterol 3 mL Neb INHALATION ×2 (02:09→08:22)
[2024-02-07 03:59] LABS: Basophils % 0.1 %; Hematocrit 38.9 % (37-53); Lymphocytes # 1.5 10^3/uL (0.8-4.8); Lymphocytes % 11.6 %; Mean Corpuscular HGB Conc 33.7 g/dL (30-55); Mean Corpuscular Hemoglobin 31.3 pg (27-33); Mean Corpuscular Volume 92.8 fl (82-101); Mean Platelet Volume 10.8 fL (7.4-10.4); Monocytes # 1.4 10^3/uL (0.2-0.9); Monocytes % 11.4 %; Neutrophils # 9.59 10^3/uL (1.8-7.7); Neutrophils % 76.6 %; Nucleated Red Blood Cells % 0 %; Platelet Count 217 10^3/cmm (157-399); Red Blood Count 4.19 10^6/uL (3.85-5.65); White Blood Count 12.51 10^3/uL (3.29-11.43)
[2024-02-07 04:23] LABS: Blood Urea Nitrogen 24 mg/dL (8-23); Calcium 8.9 mg/dL (8.5-10.5); Carbon Dioxide 24 mmol/L (22-29); Chloride 102 mmol/L (98-107); Glomerular Filtration Rate 66.4 mL/min (90-130); Glucose 178 mg/dL (65-115); Osmolality Calculated 292 mOsm/kg (285-295); Sodium 137 mmol/L (136-145)
[2024-02-07] MEDS: fexofenadine 60 mg Tablet PO (06:15)
[2024-02-07] MEDS: dilTIAZem 30 mg Tablet PO (06:15)
--- NOTE | 2024-02-07 08:12 | P.DS_ITS ---
Discharge Providers Date of Admission: 02/05/24 19:54 Date of Discharge: February 07, 2024 Attending Provider at Admission: Fitz Saba MD Attending Provider at Discharge: Yancy Pacheco MD Primary Care Provider: MARCUS Castellano Diagnoses at Discharge Discharge Diagnosis (1) Atrial fibrillation with rapid ventricular response: Status: Acute (2) COVID-19: Status: Acute (3) Pneumonia due to COVID-19 virus: Status: Acute Reason for Visit Reason for Visit: SOB, Dizzy, N/V Hospital Course Hospital Course 68M male who was admitted to the hospital for management valuation of COVID-19 pneumonia and A-fib RVR. Patient carries history of atrial fibrillation, takes atenolol but no anticoagulating agent for unknown reason, patient was managed with Decadron and remdesivir, he required 3 L of oxygen which we were able to wean off in next 24 hours, he remained afebrile, leukocytosis likely related to use of steroids, his is sick at home with COVID-19 as well. Patient endorsed vertigo related dizziness which improved as well. He will be discharged home with stable hemodynamics, will prescribe albuterol and Eliquis along metoprolol. Physical Exam Narrative: Awake and alert GCS 15 Sinus rhythm Nonfocal neuroexam Currently on room air Nonfocal neuroexam Discharge Data Studies Completed and Pending Completed Studies During Hospitalization Category Date Time Status XR chest 1V portable [id number] Stat Exams 02/05/24 17:37 Completed Pending at discharge Category Date Time Status Blood Culture Stat Lab 02/05/24 21:30 Results Radiology Impressions Chest X-Ray 02/05/24 17:37 IMPRESSION: No acute findings. Laboratory Results WBC 12.51 10^3/uL (3.29-11.43) H 02/07/24 03:21 RBC 4.19 10^6/uL (3.85-5.65) 02/07/24 03:21 Hgb 13.10 g/dL (11.27-16.99) 02/07/24 03:21 Hct 38.9 % (37-53) 02/07/24 03:21 MCV 92.8 fl (82-101) 02/07/24 03:21 MCH 31.3 pg (27-33) 02/07/24 03:21 MCHC 33.7 g/dL (30-55) 02/07/24 03:21 RDW 13.0 % (12.1-15.1) 02/07/24 03:21 Plt Count 217 10^3/cmm (157-399) 02/07/24 03:21 MPV 10.8 fL (7.4-10.4) H 02/07/24 03:21 Neut % (Auto) 76.6 % 02/07/24 03:21 Lymph % (Auto) 11.6 % 02/07/24 03:21 [place] % (Auto) 11.4 % 02/07/24 03:21 Eos % (Auto) 0.0 % 02/07/24 03:21 Baso % (Auto) 0.1 % 02/07/24 03:21 Neut # (Auto) 9.59 10^3/uL (1.8-7.7) H 02/07/24 03:21 Lymph # (Auto) 1.5 10^3/uL (0.8-4.8) 02/07/24 03:21 [place] # (Auto) 1.4 10^3/uL (0.2-0.9) H 02/07/24 03:21 Eos # (Auto) 0.0 10^3/uL (0.0-0.8) 02/07/24 03:21 Baso # (Auto) 0.0 10^3/uL (0.0-0.1) 02/07/24 03:21 Nucleated RBC % (auto) 0 % 02/07/24 03:21 Nucleated RBCs # 0.0 /100WBC 02/07/24 03:21 D-Dimer 0.44 ug/mLFEU (0-0.59) 02/05/24 21:37 Sodium 137 mmol/L (136-145) 02/07/24 03:21 Potassium 4.0 mmol/L (3.5-5.1) 02/07/24 03:21 Chloride 102 mmol/L (98-107) 02/07/24 03:21 Carbon Dioxide 24 mmol/L (22-29) 02/07/24 03:21 Anion Gap 15.0 (5-19) 02/07/24 03:21 BUN 24 mg/dL (8-23) H 02/07/24 03:21 Creatinine 1.1 mg/dL (0.7-1.2) 02/07/24 03:21 GFR Calculation 66.4 mL/min (90-130) L 02/07/24 03:21 Glucose 178 mg/dL (65-115) H 02/07/24 03:21 Estimat Average Glucose 120 02/05/24 21:37 Hemoglobin A1c 5.8 % (4.0-6.0) 02/05/24 21:37 Calculated Osmolality 292 mOsm/kg (285-295) 02/07/24 03:21 Lactic Acid 1.7 mmol/L (0.5-2.2) 02/05/24 21:37 Calcium 8.9 mg/dL (8.5-10.5) 02/07/24 03:21 Total Bilirubin 0.9 mg/dL (0.15-1.2) 02/05/24 17:47 AST 14 U/L (0-40) 02/05/24 17:47 ALT 12 U/L (0-41) 02/05/24 17:47 Alkaline Phosphatase 64 U/L (40-130) 02/05/24 17:47 Troponin T Baseline 12 ng/L (0-15) 02/05/24 17:47 Troponin T 120 Minute 12.29 ng/L (0-15) 02/05/24 19:11 Delta Troponin T 0.29 ABS# (0-10) 02/05/24 19:11 Troponin T Hi Sens 6Hr 16.52 ng/L (0-15) H 02/05/24 22:45 Troponin T Hi Sens 6Hr Delta 4.52 ng/L (0-12) 02/05/24 22:45 C-Reactive Protein 3.0 mg/L (0.0-4.9) 02/05/24 21:37 NT-Pro-B Natriuret Pep 128 pg/mL (0-125) H 02/05/24 21:37 Total Protein 6.5 g/dL (6.6-8.7) L 02/05/24 17:47 Albumin 4.4 g/dL (3.5-5.2) 02/05/24 17:47 Globulin 2.1 g/dL (1.3-4.6) 02/05/24 17:47 Triglycerides 58 mg/dL (0-150) 02/05/24 21:37 Cholesterol 115 mg/dL (0-200) 02/05/24 21:37 LDL Cholesterol, Calc 57 mg/dL (50-129) 02/05/24 21: HDL Cholesterol 46 mg/dL (60-100) L 02/05/24 21:37 LDL/HDL Ratio 1.24 RATIO (0.00-3.22) 02/05/24 21: Cholesterol/HDL Ratio 2.50 mg/dL (1.0-5.00) 02/05/24 21:37 Procalcitonin 0.04 ng/mL (0-0.5) 02/05/24 21:37 TSH 0.55 uIU/mL (0.27-4.20) 02/05/24 21:37 Urine Color Yellow (Yellow) 02/05/24 21:20 Urine Appearance Clear (CLEAR) 02/05/24 21:20 Urine pH 6.5 (5-7) 02/05/24 21:20 Ur Specific [place] 1.017 (1.005-1.030) 02/05/24 21:20 Urine Protein Negative (Negative) 02/05/24 21:20 Urine Glucose (UA) 3+ (Normal) H 02/05/24 21:20 Urine Ketones 2+ (Negative) H 02/05/24 21:20 Urine Blood Negative (Negative) 02/05/24 21:20 Urine Nitrate Negative (Negative) 02/05/24 21:20 Urine Bilirubin Negative (Negative) 02/05/24 21:20 Urine Urobilinogen 1.0 mg/dL (Negative) 02/05/24 21:20 Ur Leukocyte Esterase Negative (Negative) 02/05/24 21:20 Urine RBC 0-2 /hpf (0-2) 02/05/24 21:20 Urine WBC 0-5 /hpf (0-5) 02/05/24 21:20 Ur Squamous Epith Cells 0-5 /hpf (0-5) 02/05/24 21:20 Amorphous Sediment Not Reportable 02/05/24 21:20 Urine Bacteria None seen /hpf (NONE) 02/05/24 21:20 Hyaline Casts 0-4 /lpf H 02/05/24 21:20 Coronavirus (PCR) Positive (Negative) A 02/05/24 18:16 Influenza A (PCR) Negative (Negative) 02/05/24 18:16 Influenza Type B (PCR) Negative (Negative) 02/05/24 18:16 RSV (PCR) Negative (Negative) 02/05/24 18:16 Vitals Last Vital Signs Temp 98.2 F 02/07/24 04:00 Pulse 72 02/07/24 04:00 Resp 17 02/07/24 04:00 BP 117/68 02/07/24 04:00 Pulse Ox 92 02/07/24 04:00 O2 Del Method Room Air 02/07/24 04:00 O2 Flow Rate 1 02/06/24 09:14 Discharge Plan Discharge Patient Disposition: Home Condition: Stable Prescriptions: New metoprolol tartrate 50 mg tablet 50 mg PO BID Qty: 60 3RF Eliquis 5 mg tablet 5 mg PO BID Qty: 60 4RF albuterol sulfate 90 mcg/actuation HFA aerosol inhaler 2 inh inhalation Q8H PRN (Reason: shortness of breath or wheezing) Qty: 6.7 2RF Continued losartan 100 mg tablet 100 mg PO DAILY atorvastatin 20 mg tablet 20 mg PO DAILY finasteride 5 mg tablet 5 mg PO DAILY tamsulosin 0.4 mg capsule 0.4 mg PO DAILY aspirin 81 mg tablet,chewable 81 mg PO DAILY cinnamon bark 500 mg capsule 1,000 mg PO DAILY amlodipine 10 mg tablet 10 mg PO DAILY metformin 1,000 mg tablet 1,000 mg PO BID Discharge Orders: Discharge Order (Routine); Ordered 02/07/24 Ordered By: Yancy Pacheco Referrals: Catherine Law, DIGITAL SALES MANAGER [Primary Care Provider] - 4-7 days (Follow up with [facility] DIGITAL SALES MANAGER on Feb 11 at 2:30pm.) Patient Instructions: Metoprolol (By mouth), Apixaban (By mouth), A-fib (Atrial Fibrillation) (DC), COVID-19 and Chronic Health Conditions (DC), Face Coverings (Masks) and COVID-19 (DC), How to Recover from COVID-19 at Home (GEN), Opioid Safety Discharge Attestations Time Spent in Discharge Care*: greater than 30 min Quality Metrics Clinical Quality Measures [ No reported AMI, CVA or VTE this stay] Coding Level of Care Code Acute Code for [facility] Fwd Diagnoses Atrial fibrillation with rapid ventricular response I48.91 COVID-19 U07.1 Pneumonia due to COVID-19 virus U07.1; J12.82
[2024-02-07] MEDS: budesonide 0.5 mg/2 mL Neb INHALATION (08:22)
--- NOTE | 2024-02-07 08:30 | PC.SOCIAL ---
IMM updated. Updated pt on IMM. No questions voiced. Provided pt a copy. Initialed, dated, & timed a copy & placed in chart.
[2024-02-07] MEDS: dexamethasone 10 mg/mL INJ 6 MG PO (08:33)
[2024-02-07] MEDS: atorvastatin 40 mg Tablet PO (08:33)
[2024-02-07] MEDS: finasteride 5 mg Tablet PO (08:33)
[2024-02-07] MEDS: aspirin 81 mg Chew Tablet PO (08:33)
[2024-02-07] MEDS: tamsulosin 0.4 mg Capsule PO (08:33)
--- NOTE | 2024-02-07 09:45 | PC.NURSE ---
Patient discharged to home. Instruction given to patient regarding follow up appointment, new medications and covid. Patient verbalized complete understanding. IVs removed. Patient taken by wheelchair to private vehicle with spouse at side. Patient denies any distress or needs.
== END 2024-02-07 09:48 | disposition home or self-care (01) | DRG 177 ==
LOC: ER 19:38 → CSU 19:55
PROVIDERS: Family Medicine; Admitting Provider Family Medicine; Emergency Provider Emergency Medicine; PCP Nurse Practitioner Family; Visit Provider Internal Medicine
DX: U07.1 COVID-19 (principal); J12.82 Pneumonia due to coronavirus disease 2019; D84.9 Immunodeficiency, unspecified; I48.91 Unspecified atrial fibrillation; I10 Essential (primary) hypertension; E78.5 Hyperlipidemia, unspecified; R09.02 Hypoxemia; Z85.048 Personal history of other malignant neoplasm of rectum, rectosigmoid junction, and anus; Z90.49 Acquired absence of other specified parts of digestive tract; Z79.82 Long term (current) use of aspirin; Z79.899 Other long term (current) drug therapy
CPT/HCPCS: 0241U; 36415; 71045; 80048; 80053; 80061; 81001; 83036; 83605; 83880; 84145; 84443; 84484; 85025; 85378; 86140; 87040; 93005; 94640; 94664; 96365; 96366; 96372; 96375; 97161; 99285; J0248; J1100; J1650; J2405; J2470; J3490; J7626

== ENCOUNTER 2024-12-29 15:26 | Outpatient (CLI) | payer MEDICARE, SELFPAY ==
--- NOTE | 2024-12-29 15:31 | CT_ITS ---
WS: [id number] CT HEAD TECHNIQUE: Noncontrast CT of the head obtained from the skullbase to the vertex. CLINICAL INFORMATION: TINNITUS COMPARISON: None. DLP: 1083.[address] scans at [facility] use at least one of these dose optimization techniques: automated exposure control; mA and/or kV adjustment per patient size (includes targeted exams where dose is matched to clinical indication); or iterative reconstruction. FINDINGS: No evidence of intracranial hemorrhage or mass effect. Ventricular system and basal cisterns are patent. Mild small vessel changes with mild parenchymal volume loss. No extra-axial fluid collections. No evidence of mass or mass effect. Paranasal sinuses and mastoid air cells are well aerated. .Normal visualized soft tissues. Vascular calcification. CT/CT head wo con* [id number] IMPRESSION: 1. No evidence of intracranial hemorrhage or mass effect. 2. Mild small vessel changes. Mild parenchymal volume loss. 3. Vascular calcification. 4. Paranasal sinuses and mastoid air cells are well aerated. 5. No acute intracranial findings.
== END 2024-12-29 15:27 | disposition home or self-care (01) ==
LOC: RAD 15:29
PROVIDERS: PCP Nurse Practitioner Family; Visit Provider Nurse Practitioner Family
DX: R60.9 Edema, unspecified (principal); I67.89 Other cerebrovascular disease; G31.89 Other specified degenerative diseases of nervous system; I67.2 Cerebral atherosclerosis; Z12.11 Encounter for screening for malignant neoplasm of colon
CPT/HCPCS: 70450; 99204

== ENCOUNTER 2025-01-04 11:18 | Outpatient (CLI) | payer MEDICARE, SELFPAY ==
--- NOTE | 2025-01-04 11:29 | XRR_ITS ---
PROCEDURE INFORMATION: Exam: XR Lumbosacral Spine Exam date and time: 01/04/2025 11:35 AM Age: 69 years old Clinical indication: Prior surgery; Surgery date: 6+ months; Surgery type: L spine; Low back pain tailbone area radiating down to lt hip and knee. HX of rectal cancer; Additional info: Low back pain, unspecified TECHNIQUE: Imaging protocol: Radiologic exam of the lumbosacral spine. Views: 4 or 5 views. COMPARISON: CT abdomen pelvis w con* [id number] 01/08/2020 10:16 AM FINDINGS: 4 films Bones/joints: Mild degenerative changes of the hips. Moderate lumbar spondylosis with multilevel endplate spurring and disc space narrowing. Similar findings in the lower thoracic spine. Soft tissues: Unremarkable. Vasculature: Pelvic phleboliths. Aortic atherosclerosis. XR/XR lumbar spine min 4V [id number] IMPRESSION: No definite acute fracture, subluxation, dislocation. Mild degenerative changes of the hips. Moderate lumbar spondylosis with multilevel endplate spurring and disc space narrowing. Similar findings in the lower thoracic spine.
--- NOTE | 2025-01-04 11:29 | XRR_ITS ---
PROCEDURE INFORMATION: Exam: XR Left Hip Exam date and time: 01/04/2025 11:35 AM Age: 69 years old Clinical indication: Hip pain; Left hip; Prior surgery; Surgery date: 6+ months; Surgery type: L spine; Low back pain tailbone area radiating down to lt hip and knee. HX of rectal cancer; Additional info: Low back pain, unspecified TECHNIQUE: Imaging protocol: Radiologic exam of the left hip. Views: 2 or 3 views hip with pelvis when performed. COMPARISON: CT abdomen pelvis w con* [id number] 01/08/2020 10:16 AM FINDINGS: 2 films Bones/joints: Mild degenerative changes of left hip. Soft tissues: Unremarkable. Vasculature: Pelvic phleboliths. Atheromatous vascular calcifications of arteries XR/XR hip LT 2-3V wo/w pel* [id number] IMPRESSION: No definite acute fracture, subluxation, dislocation. Chronic findings as above.
== END 2025-01-04 11:19 | disposition home or self-care (01) ==
PROVIDERS: PCP Nurse Practitioner Family; Visit Provider Nurse Practitioner Family
DX: M47.816 Spondylosis without myelopathy or radiculopathy, lumbar region (principal)
CPT/HCPCS: 72110; 73502

== ENCOUNTER 2025-02-04 06:45 | Day surgery (SDC) | payer MEDICARE, SELFPAY ==
[2025-02-04 07:21] VITALS: BP 105/77; PULSE 92; RESP 18; TEMP 36.5; O2SAT 97; BMI 40.3
--- NOTE | 2025-02-04 07:32 | W.PM.OPSFHP ---
Same Day Surgery H&P Indication for Procedure/HPI DATE OF PROCEDURE: February 04, 2025 CHIEF COMPLAINT/INDICATIONFOR SURGICAL PROCEDURE: history of rectal cancer PREOP DIAGNOSIS: history of rectal cancer PLANNED PROCEDURE: Operation Date: 02/04/25 08:20 Proposed Procedures p Colonoscopy 77879 G0105 Z12.11(Not Applicable) - Nish Early MD Medications/Allergies* Home Medications ?Medication ?Instructions ?Recorded ?Confirmed ?Type aspirin 81 mg chewable tablet 81 mg PO DAILY 11/24/19 02/01/25 History atorvastatin 20 mg tablet 20 mg PO DAILY 11/24/19 02/01/25 History finasteride 5 mg tablet 5 mg PO DAILY 11/24/19 02/01/25 History losartan 100 mg tablet 100 mg PO DAILY 11/24/19 02/01/25 History tamsulosin 0.4 mg capsule 0.4 mg PO DAILY 11/24/19 02/01/25 History amlodipine 10 mg tablet 5 mg PO DAILY 02/06/24 02/04/25 History metformin 1,000 mg tablet 1,000 mg PO BID 02/06/24 02/01/25 History sertraline 25 mg tablet 25 mg PO DAILY 12/29/24 02/01/25 History Allergies/Adverse Reactions Allergy/AdvReac Type Severity Reaction Status Date / Time No Known Allergies Allergy Verified 02/01/25 11:59 Current Medications: Generic Name Dose Route Start Last Admin Trade Name Freq PRN Reason Stop Dose Admin Sodium Chloride 500 mls @ 30 mls/hr 02/04/25 07:15 02/04/25 07:29 Sodium Chloride 0.9% IV 02/04/25 23:54 30 mls/hr .[id number] SUSAN Administration Pertinent History/Comorbid Conditions* Medical History (Updated 02/08/24 @ 00:03 by ASHUTOSH Kidd) Pneumonia due to COVID-19 virus Atrial fibrillation with rapid ventricular response COVID-19 Arthritis Hypercholesteremia Hypercalcemia BPH (benign prostatic hyperplasia) Hypertension Surgical History (Updated 01/05/20 @ 09:57 by Grayson Vanegas MD) History of colonoscopy with polypectomy (01/05/20) rectl mass, diverticulosis, descending colon polyp History of back surgery Social History Smoking and tobacco/nicotine status: never used tobacco/nicotine Alcohol intake: never Substance/Drug Use: never Pertinent Exam Findings alert, oriented x 3, clear to auscultation bilaterally and regular rate & rhythm Recommendations Surgery/Procedure today Coding Level of Care Code Acute Code for Chg Fwd
--- NOTE | 2025-02-04 07:51 | ANES.PREANE2 ---
Pre-Anesthetic Assessment Height/Weight: Height 1.63 m Weight 106.594 kg Temp Pulse Resp BP Pulse Ox O2 Del Method 97.7 F 92 18 105/77 97 Room Air 02/04/25 07:21 02/04/25 07:21 02/04/25 07:21 02/04/25 07:21 02/04/25 07:21 02/04/25 07:21 Preop Diagnosis: history of rectal cancer Operation Date: 02/04/25 08:20 Proposed Procedures p Colonoscopy 14910 G0105 Z12.11(Not Applicable) - Nish Early MD Familial anesthetic complications: none Was Beta Nisha taken within 24 hours: Yes Was Clonidine taken within 24 hours: N/A Last intake: Intake Last Liquid Date 02/03/25 Last Liquid Time 20:00 Last Solid Date 02/02/25 Last Solid Time 19:00 Social No alcohol and No tobacco Exam alert and oriented x 3 Airway Submandibular: within normal limits Cervical ROM: within normal limits Mallampati: Class II Pulmonary None reported CV/HEM Atrial Fibrillation and Hypertension None reported Hepatic None reported GI Gastroesophageal Reflux Disease Metabolic Diabetes Mellitus and Hyperlipidemia [facility] Lower Back Pain Neuropsych None reported Anesthetic Plan ASA status: 3 Anesthesia: Anesthesia Evaluation and MAC Risk of > 500 ml blood loss (7ml/kg in children): No Medications/Allergies Home Medications ?Medication ?Instructions ?Recorded ?Confirmed ?Last Taken ?Type aspirin 81 mg chewable tablet 81 mg PO DAILY 11/24/19 02/01/25 01/31/25 History atorvastatin 20 mg tablet 20 mg PO DAILY 11/24/19 02/01/25 01/31/25 History finasteride 5 mg tablet 5 mg PO DAILY 11/24/19 02/01/25 01/31/25 History losartan 100 mg tablet 100 mg PO DAILY 11/24/19 02/01/25 02/01/25 History tamsulosin 0.4 mg capsule 0.4 mg PO DAILY 11/24/19 02/01/25 02/01/25 History amlodipine 10 mg tablet 5 mg PO DAILY 02/06/24 02/04/25 02/04/25 History 10 mg metformin 1,000 mg tablet 1,000 mg PO BID 02/06/24 02/01/25 02/01/25 History albuterol sulfate 90 mcg/actuation 2 inh inhalation Q8H PRN shortness 02/07/24 02/01/25 1 Year Ago Rx aerosol inhaler of breath or wheezing #6.7 grams ~02/02/24 apixaban 5 mg tablet (Eliquis) 5 mg PO BID #60 tabs 02/07/24 02/01/25 01/31/25 Rx metoprolol tartrate 50 mg tablet 50 mg PO BID #60 tabs 02/07/24 02/04/25 02/04/25 Rx 50 mg ondansetron 8 mg disintegrating 8 mg PO Q8H PRN nausea and 12/29/24 02/01/25 Unknown Rx tablet vomiting #3 tabs sertraline 25 mg tablet 25 mg PO DAILY 12/29/24 02/01/25 02/01/25 History Allergies Allergy/AdvReac Type Severity Reaction Status Date / Time No Known Allergies Allergy Verified 02/01/25 11:59 Current Medications Generic Name Dose Route Start Last Admin Trade Name Freq PRN Reason Stop Dose Admin Sodium Chloride 500 mls @ 30 mls/hr 02/04/25 07:15 02/04/25 07:29 Sodium Chloride 0.9% IV 02/04/25 23:54 30 mls/hr .[id number] SUSAN Administration PFSH Anesthesia Medical History (Updated 02/08/24 @ 00:03 by ASHUTOSH Kidd) Pneumonia due to COVID-19 virus Atrial fibrillation with rapid ventricular response COVID-19 Arthritis Hypercholesteremia Hypercalcemia BPH (benign prostatic hyperplasia) Hypertension Surgical History History of colonoscopy with polypectomy (01/05/20) rectl mass, diverticulosis, descending colon polyp History of back surgery Social History Smoking and tobacco/nicotine status: never used tobacco/nicotine Alcohol intake: never Substance/Drug Use: never
--- NOTE | 2025-02-04 08:18 | PC.NURSE ---
cecum time 0818
[2025-02-04 08:39] VITALS: BP 126/85; PULSE 78; RESP 18; TEMP 36.1; O2SAT 94
[2025-02-04 08:50] VITALS: PULSE 85; RESP 18; O2SAT 97
[2025-02-04 09:01] VITALS: BP 121/74; PULSE 82; RESP 18; O2SAT 95
--- NOTE | 2025-02-04 09:07 | ANE.PACU2 ---
Inpatient post-anesthesia follow up: Airway intact: Yes Vital signs: Temperature 97.0 F Pulse Rate 82 Respiratory Rate 18 Blood Pressure 121/74 Pulse Oximetry 95 Oxygen Delivery Me thod Room Air Oxygen Flow Rate Fraction of Inspir ed Oxygen Hydration adequate: Yes Nausea and vomiting: No Pain level: 1 Mental status: Baseline
--- NOTE | 2025-02-04 13:11 | ANE.PACU2 ---
Inpatient post-anesthesia follow up: Airway intact: Yes Vital signs: Temperature 97.0 F Pulse Rate 82 Respiratory Rate 18 Blood Pressure 121/74 Pulse Oximetry 95 Oxygen Delivery Me thod Room Air Oxygen Flow Rate Fraction of Inspir ed Oxygen Hydration adequate: Yes Nausea and vomiting: No Mental status: Baseline
== END 2025-02-04 09:09 | disposition home or self-care (01) ==
PROVIDERS: PCP Nurse Practitioner Family; Visit Provider Surgery
PROC: 0DJD8ZZ Inspection of Lower Intestinal Tract, Via Natural or Artificial Opening Endoscopic (ICD-10-PCS; CPT 45378; principal; 2025-02-04 08:20)
DX: Z85.038 Personal history of other malignant neoplasm of large intestine (principal); D12.5 Benign neoplasm of sigmoid colon; D12.3 Benign neoplasm of transverse colon; D12.8 Benign neoplasm of rectum; Z79.82 Long term (current) use of aspirin; Z79.84 Long term (current) use of oral hypoglycemic drugs; I48.20 Chronic atrial fibrillation, unspecified; E78.00 Pure hypercholesterolemia, unspecified; I10 Essential (primary) hypertension; K21.9 Gastro-esophageal reflux disease without esophagitis; E78.5 Hyperlipidemia, unspecified; E11.9 Type 2 diabetes mellitus without complications
CPT/HCPCS: 36416; 45380; 45385; 82962; 88305; J2704; J7040

== ENCOUNTER 2025-02-10 06:59 | Outpatient (CLI) | payer MEDICARE, SELFPAY ==
--- NOTE | 2025-02-10 | ECG_ITS ---
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 The perfusion scan will be documented separately. DATA: Baseline heart rate was 79 beats per minute. Baseline blood pressure was 133/89 millimeters of mercury. Target heart rate was 150 maximum heart rate achieved was 116 which was 77% of the predicted target heart rate. Maximum blood pressure was 133/89 millimeters of mercury. The reason for ending the test was [completion of the protocol]. The patient did not experience any symptoms. [] ELECTROCARDIOGRAM: BASELINE: Atrial fibrillation. Normal axis. Otherwise, no ST-T changes suggestive of ischemia noted. No arrhythmia noted. [] EXERCISE: After Lexiscan injection, no ST-T changes suggestive of ischemic noted. No arrhythmia noted. [] CONCLUSION: Please note due to baseline abnormality of the EKG specificity and sensitivity of the EKG portion of LexiScan MIBI stress test will be low 1. [EKG not suggestive of ischemia] 2. [Lexiscan injection unremarkable]. 3. Perfusion scan will be documented separately. Electronically Signed On 03-07-2025 21:23:21 CDT by JACKY WALL [email or web address]
[2025-02-10 07:42] VITALS: BMI 40.3
--- NOTE | 2025-02-10 07:48 | NMCV_ITS ---
NM jewell perf SPECT r/s* [id number] Ian Coleman Age: 69 Gender: M : 1955 Exam Date: 02/10/2025 08:14 Ordering Phys: Catherine Law QUANTITATIVE EQUITY HEAD Technologist: CALIXTO Cárdenas Exam Location: [facility] Indications: CP STRESS TEST Please see separate stress test report in [employer] for full findings IMAGE PROTOCOL Rest/Stress 1 Lexiscan Day Radiopharmaceutical Dose (mCi) Administration Site Administered by Rest: Tc-99m 10.9 IV Kelsi Cagle, RIVETING MACHINE OPERATOR TAPE CONTROL Sestamibi Stress:Tc-99m 32.6 IV Kelsi Sanchezgle, RIVETING MACHINE OPERATOR TAPE CONTROL Sestamibi Rest: 10-Feb-2025 60 Discovery 630 Stress: 10-Feb-2025 30 Discovery 630 0.4mg Lexiscan. Images obtained in supine and prone position. SPECT RESULTS Technical Quality: Good Raw Data Analysis: Normal Image Corrections: No attenuation or motion correction applied Summed Stress Score: 1 Summed Rest Score: 0 Summed Difference Score: 1 PERFUSION FINDINGS FUNCTIONAL RESULTS (calculated via Gated SPECT) Stress Image LV EF (%): 64 Stress EDV (mL):83 TID: 1.11 Stress ESV (mL):30 FUNCTIONAL FINDINGS: There is normal left ventricular systolic function. IMPRESSIONS Myocardial perfusion imaging is normal. Yancy Fitzgerald MD (Electronically Signed) Final Date: 10 February 2025 13:12 S
[2025-02-10 08:56] VITALS: BP 113/81; PULSE 98
== END 2025-02-10 07:00 | disposition home or self-care (01) ==
LOC: CDL 07:01
PROVIDERS: PCP Nurse Practitioner Family; Visit Provider Nurse Practitioner Family
DX: R07.89 Other chest pain (principal)
CPT/HCPCS: 36415; 78452; 93017; 96374; A9500; J2785

== ENCOUNTER → 2025-02-23 08:42 | Outpatient (BNVA) | payer MEDICARE, SELFPAY | PROVIDERS: PCP Nurse Practitioner Family; Visit Provider Surgery | DX: Z09 Encounter for follow-up examination after completed treatment for conditions other than malignant neoplasm (principal) | CPT/HCPCS: 99213 ==